=== PATIENT | male | born 1945 | race Caucasian/White ===

== ENCOUNTER 2023-02-04 23:52 | Inpatient (IN) ==
[2023-02-05 00:21] LABS: Basophils # (auto) 0.04 K/uL (0-0.2); Basophils % (auto) 0.7 %; Eosinophils # (auto) 0.22 K/uL (0-0.50); Eosinophils % (auto) 3.7 %; Hematocrit (blood only) 41.6 % (42.0-52.0); Hemoglobin 14.1 g/dl (14.0-18.0); Immature Granulocytes # (auto) 0.04 K/uL (0.01-0.20); Immature Granulocytes % (auto) 0.7 %; Lymphocytes # (auto) 1.31 K/uL (1.2-3.4); Lymphocytes % (auto) 21.8 %; Mean Corpuscular Hemoglobin 30.8 pg (25.0-34.0); Mean Corpuscular Hgb Conc 33.9 g/dL (32.0-36.0); Mean Corpuscular Volume 90.8 fL (80.0-100.0); Mean Platelet Volume 10.5 fL (9.4-12.4); Monocytes # (auto) 0.55 K/uL (0.11-0.59); Monocytes % (auto) 9.2 %; Neutrophils # (auto) 3.85 K/uL (1.40-6.50); Neutrophils % (auto) 63.9 %; Platelet Count 187 K/uL (130-400); RDW Coefficient of Variation 12.5 % (11.5-14.5); RDW Standard Deviation 41.6 fL (36.4-46.3); Red Blood Count 4.58 M/uL (4.70-6.10); White Blood Count 6.01 K/ul (4.8-10.8)
--- NOTE | 2023-02-05 00:33 | Emergency Department Note ---
Impression & Plan Syncope, HTN (hypertension) ED Provider Note NAME: SHERRILL LÓPEZ AGE: 77 SEX: M : 1945 ARRIVES VIA: Ambulance INFORMANT: Patient ED PROVIDER(S): Onesimo Horner DO CHIEF COMPLAINT: Syncope HPI: Patient is a 77-year-old male who presents to the ER with no significant past medical history. He notes he only takes an aspirin daily but does not take anything else. He was out sitting at the table with friends. He became unresponsive Pall[place] blue. When EMS arrived they sternal rub him and he would not wake up. He was placed on a nonrebreather as he was hypoxic with a pulse ox of 80%. He eventually woke up following administration of IV fluids. He notes he was feeling perfectly fine prior to this. He had no chest pain or shortness of breath preceding or following this. No belly pain nausea vomiting or diarrhea. No dysuria urgency or frequency. No other exacerbating or remitting factors. No weakness or numbness in the arms or legs. PAST MEDICAL HISTORY:See Below PAST SURGICAL HISTORY:See Below FAMILY HISTORY:See Below SOCIAL HISTORY:See Below HOME MEDICATIONS:See Below ALLERGIES:See Below VITALS:See Below PHYSICAL EXAMINATION: GENERAL: Sitting up in bed, alert, well appearing, well nourished, no distress, non-toxic EYE EXAM: normal conjunctiva. PERRL and EOM's grossly intact. OROPHARYNX: no exudate, no erythema, lips, buccal mucosa, and tongue normal and mucous membranes are moist NECK: supple, no nuchal rigidity, no adenopathy, non-tender LUNGS: Clear to auscultation. Normal chest wall mechanics HEART: no murmurs, S1 normal and S2 normal ABDOMEN: abdomen soft, non-tender, normo-active bowel sounds, no masses, no rebound or guarding. UPPER EXTREMITIES: upper extremities are grossly normal. LOWER EXTREMITIES: No pitting edema. Calves are equal bilateral NEURO EXAM: Normal sensorium, cranial nerves II-XII intact, normal speech, no weakness of arms, no weakness of legs. No drift. Finger to nose intact. Gross sensation intact. MEDICAL DECISION MAKING: Patient is a 77-year-old male who presents ER for above-stated complaint. IV w as established blood work was obtained. Patient was completely neurologically intact. He was found unresponsive with a pulse ox of 80% and was brought in and did not wake up following a sternal rub. Labs show no significant leukocytosis or anemia. EKG was nondiagnostic. BMP LFTs bilirubin was unremarkable. Troponin was negative. Lipase normal. COVID flu and RSV was negative. Patient was persistently hypertensive with systolics of 210. Was given 10 mg of IV hydralazine. Blood pressures did trend down to the 180s. Patient was updated at bedside. Discussed with the hospitalist Dr. Montez Flaherty for further evaluation management and treatment. Triage Nursing notes reviewed. Limited review of prior medical records performed Vital Signs: reviewed and remarkable for HTN Differential diagnosis: Differential diagnosis includes etiologies such as vasovagal event, infection, hypoglycemia, electrolyte abnormalities, cardiac sources, intracerebral event, toxicologic, neurologic, as well as others were entertained. ER treatment provided: See below Diagnostics interpreted by me include EKG and cardiac monitoring as listed below: -Cardiac Monitoring: An order was placed for continuous cardiac monitoring. The monitor shows a rate of 80 with sinus rhythm. -ECG: Sinus rhythm rate 79 Normal axis No PVCs Poor baseline QTc 447 -Laboratory studies:Interpreted by me as stated above in MDM and shown below. Imaging studies: Xrays: As interpreted by me: Portable AP upright 1 view of the chest shows no focal infiltrate CTs show: none Consultation(s): As described in MDM Procedures:none Critical Care: None Past Med/Surg History Social History Smoking Status: Never smoker Preferred Language: Chinese Feels Safe at Home: Yes Allergies Allergies Allergy/AdvReac Type Severity Reaction Status Date / Time No Known Allergies Allergy Verified 02/05/23 00:34 Home Meds Home Medications Medication Instructions Recorded Confirmed acetylcysteine 600 mg capsule (NAC) 0 mg PO DAILY 02/05/23 02/05/23 ascorbic acid (vitamin C) 500 mg 0 mg PO DAILY 02/05/23 02/05/23 tablet (Vitamin C) cholecalciferol (vitamin D3) 25 0 mcg PO DAILY 02/05/23 02/05/23 mcg (1,000 unit) capsule (Vitamin D3) cyanocobalamin (vitamin B-12) 0 mcg PO DAILY 02/05/23 02/05/23 1,000 mcg tablet (Vitamin B-12) multivitamin 1 tab PO DAILY 02/05/23 02/05/23 zinc gluconate 100 mg tablet 0 mg PO DAILY 02/05/23 02/05/23 Results & Data (ED) Vital Signs Vital Signs - 24 hr 02/04/23 23:58 02/04/23 23:58 02/05/23 00:10 Temperature 36.7 C Temperature Source Oral Pulse Rate 82 Pulse Rate from SpO2 Sensor Respiratory Rate 22 Respiratory Effort / Characteristics Non-Labored Spontaneous Non-Labored Spontaneous Respiratory Depth Normal Blood Pressure 201/93 H Blood Pressure Mean 129 Pulse Oximetry 97 97 Oxygen Delivery Method Room Air Room Air Sepsis New/Unexplained Change in Mental Status N/A Sepsis Action Taken by Nursing No Action Required 02/05/23 00:01 02/05/23 00:02 02/05/23 00:02 Temperature Temperature Source Pulse Rate 79 76 Pulse Rate from SpO2 Sensor Respiratory Rate 20 19 Respiratory Effort / Characteristics Respiratory Depth Blood Pressure 201/93 H Blood Pressure Mean 137 Pulse Oximetry Oxygen Delivery Method Sepsis New/Unexplained Change in Mental Status Sepsis Action Taken by Nursing 02/05/23 00:10 02/05/23 00:20 02/05/23 00:30 Temperature Temperature Source Pulse Rate 76 73 Pulse Rate from SpO2 Sensor 75 73 Respiratory Rate 23 12 Respiratory Effort / Characteristics Respiratory Depth Blood Pressure 197/107 H Blood Pressure Mean 150 Pulse Oximetry 97 96 Oxygen Delivery Method Sepsis New/Unexplained Change in Mental Status Sepsis Action Taken by Nursing 02/05/23 00:30 02/05/23 00:40 02/05/23 00:50 Temperature Temperature Source Pulse Rate 75 74 80 Pulse Rate from SpO2 Sensor 75 75 80 Respiratory Rate 22 17 32 H Respiratory Effort / Characteristics Respiratory Depth Blood Pressure Blood Pressure Mean Pulse Oximetry 96 96 95 Oxygen Delivery Method Sepsis New/Unexplained Change in Mental Status Sepsis Action Taken by Nursing 02/05/23 01:00 02/05/23 01:01 02/05/23 01:01 Temperature Temperature Source Pulse Rate 78 92 H Pulse Rate from SpO2 Sensor 80 92 H Respiratory Rate 23 20 Respiratory Effort / Characteristics Respiratory Depth Blood Pressure 209/102 H Blood Pressure Mean 140 Pulse Oximetry 94 96 Oxygen Delivery Method Sepsis New/Unexplained Change in Mental Status Sepsis Action Taken by Nursing 02/05/23 01:10 02/05/23 01:20 02/05/23 01:30 Temperature Temperature Source Pulse Rate 71 76 77 Pulse Rate from SpO2 Sensor 71 73 75 Respiratory Rate 19 18 25 H Respiratory Effort / Characteristics Respiratory Depth Blood Pressure Blood Pressure Mean Pulse Oximetry 98 98 97 Oxygen Delivery Method Sepsis New/Unexplained Change in Mental Status Sepsis Action Taken by Nursing 02/05/23 01:31 02/05/23 01:31 02/05/23 01:40 Temperature Temperature Source Pulse Rate 75 84 Pulse Rate from SpO2 Sensor 74 80 Respiratory Rate 17 19 Respiratory Effort / Characteristics Respiratory Depth Blood Pressure 199/106 H Blood Pressure Mean 130 Pulse Oximetry 96 97 Oxygen Delivery Method Sepsis New/Unexplained Change in Mental Status Sepsis Action Taken by Nursing 02/05/23 01:50 02/05/23 02:00 02/05/23 02:00 Temperature Temperature Source Pulse Rate 77 70 Pulse Rate from SpO2 Sensor 76 73 Respiratory Rate 26 H 12 Respiratory Effort / Characteristics Respiratory Depth Blood Pressure 195/104 H Blood Pressure Mean 152 Pulse Oximetry 98 97 Oxygen Delivery Method Sepsis New/Unexplained Change in Mental Status Sepsis Action Taken by Nursing 02/05/23 02:10 02/05/23 02:20 02/05/23 02:30 Temperature Temperature Source Pulse Rate 74 Pulse Rate from SpO2 Sensor 74 70 Respiratory Rate 15 Respiratory Effort / Characteristics Respiratory Depth Blood Pressure 185/98 H Blood Pressure Mean 148 Pulse Oximetry 98 96 Oxygen Delivery Method Sepsis New/Unexplained Change in Mental Status Sepsis Action Taken by Nursing 02/05/23 02:30 Temperature Temperature Source Pulse Rate 73 Pulse Rate from SpO2 Sensor 73 Respiratory Rate 29 H Respiratory Effort / Characteristics Respiratory Depth Blood Pressure Blood Pressure Mean Pulse Oximetry 97 Oxygen Delivery Method Sepsis New/Unexplained Change in Mental Status Sepsis Action Taken by Nursing Laboratory Data 02/05/23 00:05 02/05/23 00:05 Lab Results 02/05/23 02/05/23 02/05/23 Range/Units 00:05 00:05 00:05 WBC 6.01 (4.8-10.8) K/ul RBC 4.58 L (4.70-6.10) M/uL Hgb 14.1 (14.0-18.0) g/dl Hct 41.6 L (42.0-52.0) % MCV 90.8 (80.0-100.0) fL MCH 30.8 (25.0-34.0) pg MCHC 33.9 (32.0-36.0) g/dL RDW Std Deviation 41.6 (36.4-46.3) fL RDW Coeff of Stephanie 12.5 (11.5-14.5) % Plt Count 187 (130-400) K/uL MPV 10.5 (9.4-12.4) fL Immature Gran % (Auto) 0.7 % Neut % (Auto) 63.9 % Lymph % (Auto) 21.8 % [place] % (Auto) 9.2 % Eos % (Auto) 3.7 % Baso % (Auto) 0.7 % Neut # (Auto) 3.85 (1.40-6.50) K/uL Lymph # (Auto) 1.31 (1.2-3.4) K/uL [place] # (Auto) 0.55 (0.11-0.59) K/uL Eos # (Auto) 0.22 (0-0.50) K/uL Baso # (Auto) 0.04 (0-0.2) K/uL Immature Gran # (Auto) 0.04 (0.01-0.20) K/uL APTT 22.5 (21.0-31.0) Seconds PTT Ratio 0.8 Sodium 135 L (136-145) mmol/L Potassium 3.7 (3.5-5.1) mmol/L Chloride 101 (98-107) mmol/L Carbon Dioxide 29 (21-32) mmol/L Anion Gap 5 (3-11) BUN 20 (6-23) mg/dl Creatinine 1.33 (0.6-1.4) mg/dl Est Cr Clr Drug Dosing 45.7 ml/min Est GFR ( Amer) 59.8 ml/min Est GFR (Non-Af Amer) 51.6 ml/min BUN/Creatinine Ratio 15.0 (10-20) Glucose 194 H (70-99(Fasting)) mg/dl Calcium 8.9 (8.6-10.3) mg/dl Magnesium 2.0 (1.7-2.4) mg/dl Total Bilirubin 0.4 (0.2-1.0) mg/dl AST 25 (13-39) U/L ALT 20 (7-52) U/L Alkaline Phosphatase 42 (34-104) U/L Troponin I High Sens 9.8 (0-20) pg/ml Total Protein 6.8 (6.0-8.3) gm/dl Albumin 4.0 (3.4-5.0) gm/dl Globulin 2.8 (2.5-4.0) gm/dl Albumin/Globulin Ratio 1.4 (0.9-2) Lipase 67 (11-82) U/L TSH (0.300-4.500) uIu/ml Urine Color Urine Appearance (Clear) Urine pH (4.5-7.5) Ur Specific [place] (1.000-1.030) Urine Protein (Negative) Urine Glucose (UA) (Negative) Urine Ketones (Negative) Urine Blood (Negative) Urine Nitrite (Negative) Urine Bilirubin (Negative) Urine Urobilinogen (Negative) Ur Leukocyte Esterase (Negative) SARS-CoV-2 (PCR) (Negative) Influenza Type A (PCR) (Neg) Influenza Type B (PCR) (Neg) RSV (RT-PCR) (Neg) 02/05/23 02/05/23 02/05/23 Range/Units 00:05 00:12 01:43 WBC (4.8-10.8) K/ul RBC (4.70-6.10) M/uL Hgb (14.0-18.0) g/dl Hct (42.0-52.0) % MCV (80.0-100.0) fL MCH (25.0-34.0) pg MCHC (32.0-36.0) g/dL RDW Std Deviation (36.4-46.3) fL RDW Coeff of Stephanie (11.5-14.5) % Plt Count (130-400) K/uL MPV (9.4-12.4) fL Immature Gran % (Auto) % Neut % (Auto) % Lymph % (Auto) % [place] % (Auto) % Eos % (Auto) % Baso % (Auto) % Neut # (Auto) (1.40-6.50) K/uL Lymph # (Auto) (1.2-3.4) K/uL [place] # (Auto) (0.11-0.59) K/uL Eos # (Auto) (0-0.50) K/uL Baso # (Auto) (0-0.2) K/uL Immature Gran # (Auto) (0.01-0.20) K/uL APTT (21.0-31.0) Seconds PTT Ratio Sodium (136-145) mmol/L Potassium (3.5-5.1) mmol/L Chloride (98-107) mmol/L Carbon Dioxide (21-32) mmol/L Anion Gap (3-11) BUN (6-23) mg/dl Creatinine (0.6-1.4) mg/dl Est Cr Clr Drug Dosing ml/min Est GFR ( Amer) ml/min Est GFR (Non-Af Amer) ml/min BUN/Creatinine Ratio (10-20) Glucose (70-99(Fasting)) mg/dl Calcium (8.6-10.3) mg/dl Magnesium (1.7-2.4) mg/dl Total Bilirubin (0.2-1.0) mg/dl AST (13-39) U/L ALT (7-52) U/L Alkaline Phosphatase (34-104) U/L Troponin I High Sens (0-20) pg/ml Total Protein (6.0-8.3) gm/dl Albumin (3.4-5.0) gm/dl Globulin (2.5-4.0) gm/dl Albumin/Globulin Ratio (0.9-2) Lipase (11-82) U/L TSH 8.623 H (0.300-4.500) uIu/ml Urine Color Yellow Urine Appearance Clear (Clear) Urine pH 7.5 (4.5-7.5) Ur Specific [place] 1.011 (1.000-1.030) Urine Protein Negative (Negative) Urine Glucose (UA) Trace H (Negative) Urine Ketones Negative (Negative) Urine Blood Negative (Negative) Urine Nitrite Negative (Negative) Urine Bilirubin Negative (Negative) Urine Urobilinogen Negative (Negative) Ur Leukocyte Esterase Negative (Negative) SARS-CoV-2 (PCR) NEGATIVE (Negative) Influenza Type A (PCR) Negative (Neg) Influenza Type B (PCR) Negative (Neg) RSV (RT-PCR) Negative (Neg) Administered Medications Lactated Ringer's (Lr) 1,000 mls @ 60 mls/hr IV .[id number] ONE Stop: 02/05/23 18:42 Last Admin: 02/05/23 02:20 Dose: 60 mls/hr Documented By: E MARKETING SPECIALIST Discontinued Medications Hydralazine HCl (Hydralazine Hcl 20 Mg/Ml Vial) 10 mg IV NOW STA Stop: 02/05/23 01:19 Last Admin: 02/05/23 02:20 Dose: 10 mg Documented By: E MARKETING SPECIALIST Ioversol (Optiray 320 125ml) 125 ml IV ONCE ONE Stop: 02/05/23 03:16 Last Admin: 02/05/23 03:17 Dose: 118 ml Documented By: DIANNE Discharge Plan Visit Data Chief Complaint: Respiratory Problems Stated Complaint: Respiratory Problems, Found Unresponsive ED Provider: Onesimo Horner Discharge Problem: Syncope, HTN (hypertension) Forms Stand Alone Forms: [facility] Prescriptions Prescriptions: No Action multivitamin Tablet 1 tab PO DAILY zinc gluconate [Zinc Natural] 100 mg Tablet 0 mg PO DAILY Rx Instructions: PT UNSURE OF STRENGTH cyanocobalamin (vitamin B-12) [Vitamin B-12] 1,000 mcg Tablet 0 mcg PO DAILY Rx Instructions: PT UNSURE OF STRENGTH ascorbic acid (vitamin C) [Vitamin C] 500 mg Tablet 0 mg PO DAILY Rx Instructions: PT UNSURE OF STRENGTH cholecalciferol (vitamin D3) [Vitamin D3] 25 mcg (1,000 unit) Capsule 0 mcg PO DAILY Rx Instructions: PT UNSURE OF STRENGTH acetylcysteine [NAC] 600 mg Capsule 0 mg PO DAILY Rx Instructions: PT UNSURE OF STRENGTH Referrals Referrals: PCP,NO [Primary Care Provider] -
[2023-02-05 00:45] LABS: Albumin Globulin Ratio 1.4 (0.9-2); Bilirubin,Total 0.4 mg/dl (0.2-1.0); Calcium 8.9 mg/dl (8.6-10.3); Creatinine Clr Calc Pharmacy 45.7 ml/min; Est GFR (African American) 59.8 ml/min; Est GFR (Non-African American) 51.6 ml/min; Globulin 2.8 gm/dl (2.5-4.0); Potassium 3.7 mmol/L (3.5-5.1); Total Protein 6.8 gm/dl (6.0-8.3)
[2023-02-05 00:51] LABS: Troponin I High Sensitivity 9.8 pg/ml (0-20)
[2023-02-05 00:55] LABS: Influenza A virus by PCR Negative (Neg); Influenza B virus by PCR Negative (Neg); RSV by PCR Negative (Neg); SARS CoV2 RNA(COVID-19) Ceph NEGATIVE (Negative)
[2023-02-05] MEDS ORDERED: hydrALAZINE HCL 20 MG/ML VIAL IV STA (01:18)
[2023-02-05 01:45] LABS: Partial Thromboplastin Ratio 0.8; Partial Thromboplastin Time 22.5 Seconds (21.0-31.0)
[2023-02-05 01:55] LABS: Appearance Urine Clear (Clear); Bilirubin Urine Negative (Negative); Blood Urine Negative (Negative); Color Urine Yellow; Glucose Urine UA Trace (Negative); Ketones Urine Negative (Negative); Leukocyte Esterase Urine Negative (Negative); Nitrite Urine Negative (Negative); Protein Urine Negative (Negative); Specific Gravity Urine 1.011 (1.000-1.030); Urobilinogen Urine Negative (Negative); pH Urine 7.5 (4.5-7.5)
--- NOTE | 2023-02-05 01:59 | History & Physical Report ---
Date of Service February 05, 2023 Assessment & Plan (1) Hypertensive urgency: Plan: Possible BP elevation given cardiomegaly on CT imaging Transient unresponsiveness (which patient denies)/weakness Possibly from transient hypotension Rule out arrhythmia, valvular pathology Subclinical hypothyroidism Hyperglycemia rule out DM OBS Medical telemetry Initiate lisinopril TTE Re: Hypotension check hemoglobin A1c Recheck TSH next month outpatient DVT prophylaxis with Lovenox subcu Full code Text document was generated using [employer] voice recognition software. It may contain grammatical or spelling errors. Kindly contact undersigned for clarification of any documentation item in question. History of Present Illness Chief Complaint: Tired as per patient Unresponsive as per records Primary Care Provider: NO PCP History obtained from patient and records. No significant medical history. Patient is a resident of [place] who has not had a primary care doctor for years. Patient only takes [id number] supplements. He is currently in town to look at properties because he wants to reestablish residence in [place]. Patient resided with in [place] for more than 30 years before she from cancer about 2 years ago. Patient currently lives with his daughter in [place]. Patient was staying in [place], [place] at his sister's home the past week before driving to [facility] yesterday. He had a very busy day yesterday running errands and looking at properties. He remembers being tired. Patient was sitting at a table at a friend's home last night. He had his head down because he was tired. Patient denies loss of consciousness or syncope. His friends thought he was unresponsive. No witnessed seizures, incontinence. EMS called to friend's home. Initial SBP 60s, heart rate 50s to 60s, O2 sats 82 on room air. BSG 160s. Patient initially not responsive to sternal rub as per EMS report. Patient later woke up after IV fluids. Patient denies headache, chest pain, SOB. Admits to burping symptoms from a bad turkey sandwich. No actual abdominal pain. SBP 200s upon arrival at the ER. IV hydralazine administered at the ER. Medical History as above Surgical History : Tonsillectomy Family History : Alcoholism Personal/Social history : Non-smoker, occasional EtOH intake, retired businessman Allergies Allergy/AdvReac Type Severity Reaction Status Date / Time No Known Allergies Allergy Verified 07/05/23 00:34 Home Medications Medication Instructions Recorded Confirmed Type acetylcysteine 600 mg capsule (NAC) 0 mg PO DAILY 02/05/23 02/05/23 History ascorbic acid (vitamin C) 500 mg 0 mg PO DAILY 02/05/23 02/05/23 History tablet (Vitamin C) cholecalciferol (vitamin D3) 25 0 mcg PO DAILY 02/05/23 02/05/23 History mcg (1,000 unit) capsule (Vitamin D3) cyanocobalamin (vitamin B-12) 0 mcg PO DAILY 02/05/23 02/05/23 History 1,000 mcg tablet (Vitamin B-12) multivitamin 1 tab PO DAILY 02/05/23 02/05/23 History zinc gluconate 100 mg tablet 0 mg PO DAILY 02/05/23 02/05/23 History Past Med/Surg History Social History Smoking Status: Never smoker Hx Alcohol Use: No Hx Substance Use: No Preferred Language: Palauan Communication Ability: Effective [employer]imney Supervisor Required: No Beliefs That Will Affect Care: None Current Living Situation: Alone Feels Safe at Home: Yes Safety Concerns: Feels Safe At This Time Assistive Devices: None Review of Systems Review of Systems: As per HPI, all other systems reviewed and negative Physical Exam Physical Exam: GENERAL: Comfortable, pleasant, no respiratory distress SKIN: Normal color, warm HEENT: [place] palpebral conjunctivae, no ptosis, dry buccal mucosa NECK : Supple, no tenderness CHEST : CTA, no tenderness HEART : RRR, no obvious murmurs ABDOMEN: no distention, nontender EXTREMITIES : No LE swelling/tenderness, no other conspicuous deformities noted NEUROLOGIC : Coherent, no facial asymmetry, no other gross focality Results & Data Results & Data Vital Signs (Past 12 Hours) Vital Signs Temp Pulse Resp BP Pulse Ox O2 Del Method 02/05/23 01:01 92 H 20 96 02/05/23 01:01 209/102 H 02/05/23 01:00 78 23 94 02/05/23 00:50 80 32 H 95 02/05/23 00:40 74 17 96 02/05/23 00:30 75 22 96 02/05/23 00:30 197/107 H 02/05/23 00:20 73 12 96 02/05/23 00:10 76 23 97 02/05/23 00:02 201/93 H 02/05/23 00:02 76 19 02/05/23 00:01 79 20 02/05/23 00:10 97 Room Air 02/04/23 23:58 36.7 C 82 22 201/93 H 97 Room Air Laboratory Results Laboratory Results WBC 6.01 K/ul (4.8-10.8) 02/05/23 00:05 RBC 4.58 M/uL (4.70-6.10) L 02/05/23 00:05 Hgb 14.1 g/dl (14.0-18.0) 02/05/23 00:05 Hct 41.6 % (42.0-52.0) L 02/05/23 00:05 MCV 90.8 fL (80.0-100.0) 02/05/23 00:05 MCH 30.8 pg (25.0-34.0) 02/05/23 00:05 MCHC 33.9 g/dL (32.0-36.0) 02/05/23 00:05 RDW Std Deviation 41.6 fL (36.4-46.3) 02/05/23 00:05 RDW Coeff of Stephanie 12.5 % (11.5-14.5) 02/05/23 00:05 Plt Count 187 K/uL (130-400) 02/05/23 00:05 MPV 10.5 fL (9.4-12.4) 02/05/23 00:05 Immature Gran % (Auto) 0.7 % 02/05/23 00:05 Neut % (Auto) 63.9 % 02/05/23 00:05 Lymph % (Auto) 21.8 % 02/05/23 00:05 [place] % (Auto) 9.2 % 02/05/23 00:05 Eos % (Auto) 3.7 % 02/05/23 00:05 Baso % (Auto) 0.7 % 02/05/23 00:05 Neut # (Auto) 3.85 K/uL (1.40-6.50) 02/05/23 00:05 Lymph # (Auto) 1.31 K/uL (1.2-3.4) 02/05/23 00:05 [place] # (Auto) 0.55 K/uL (0.11-0.59) 02/05/23 00:05 Eos # (Auto) 0.22 K/uL (0-0.50) 02/05/23 00:05 Baso # (Auto) 0.04 K/uL (0-0.2) 02/05/23 00:05 Immature Gran # (Auto) 0.04 K/uL (0.01-0.20) 02/05/23 00:05 APTT 22.5 Seconds (21.0-31.0) 02/05/23 00:05 PTT Ratio 0.8 02/05/23 00:05 Sodium 135 mmol/L (136-145) L 02/05/23 00:05 Potassium 3.7 mmol/L (3.5-5.1) 02/05/23 00:05 Chloride 101 mmol/L (98-107) 02/05/23 00:05 Carbon Dioxide 29 mmol/L (21-32) 02/05/23 00:05 Anion Gap 5 (3-11) 02/05/23 00:05 BUN 20 mg/dl (6-23) 02/05/23 00:05 Creatinine 1.33 mg/dl (0.6-1.4) 02/05/23 00:05 Est Cr Clr Drug Dosing 45.7 ml/min 02/05/23 00:05 Est GFR ( Amer) 59.8 ml/min 02/05/23 00:05 Est GFR (Non-Af Amer) 51.6 ml/min 02/05/23 00:05 BUN/Creatinine Ratio 15.0 (10-20) 02/05/23 00:05 Glucose 194 mg/dl (70-99(Fasting)) H 02/05/23 00:05 Calcium 8.9 mg/dl (8.6-10.3) 02/05/23 00:05 Total Bilirubin 0.4 mg/dl (0.2-1.0) 02/05/23 00:05 AST 25 U/L (13-39) 02/05/23 00:05 ALT 20 U/L (7-52) 02/05/23 00:05 Alkaline Phosphatase 42 U/L (34-104) 02/05/23 00:05 Troponin I High Sens 9.8 pg/ml (0-20) 02/05/23 00:05 Total Protein 6.8 gm/dl (6.0-8.3) 02/05/23 00:05 Albumin 4.0 gm/dl (3.4-5.0) 02/05/23 00:05 Globulin 2.8 gm/dl (2.5-4.0) 02/05/23 00:05 Albumin/Globulin Ratio 1.4 (0.9-2) 02/05/23 00:05 Lipase 67 U/L (11-82) 02/05/23 00:05 Urine Color Yellow 02/05/23 01:43 Urine Appearance Clear (Clear) 02/05/23 01:43 Urine pH 7.5 (4.5-7.5) 02/05/23 01:43 Ur Specific [place] 1.011 (1.000-1.030) 02/05/23 01:43 Urine Protein Negative (Negative) 02/05/23 01:43 Urine Glucose (UA) Trace (Negative) H 02/05/23 01:43 Urine Ketones Negative (Negative) 02/05/23 01:43 Urine Blood Negative (Negative) 02/05/23 01:43 Urine Nitrite Negative (Negative) 02/05/23 01:43 Urine Bilirubin Negative (Negative) 02/05/23 01:43 Urine Urobilinogen Negative (Negative) 02/05/23 01:43 Ur Leukocyte Esterase Negative (Negative) 02/05/23 01:43 SARS-CoV-2 (PCR) NEGATIVE (Negative) 02/05/23 00:12 Influenza Type A (PCR) Negative (Neg) 02/05/23 00:12 Influenza Type B (PCR) Negative (Neg) 02/05/23 00:12 RSV (RT-PCR) Negative (Neg) 02/05/23 00:[address] chest : COMPARISON: No relevant prior studies available. FINDINGS: Limitations: There is respiratory artifact, which degrades image quality on multiple image slices. Pulmonary arteries: Accounting for limitations with respiratory artifact, there is no definite evidence for pulmonary embolism. Aorta: No acute findings. No thoracic aortic aneurysm. Lungs: Minimal dependent subsegmental changes noted posteriorly in both lungs. No focal airspace consolidation. Pleural space: Unremarkable. No significant effusion. No pneumothorax. Heart: The cardiac chambers are mildly enlarged. Coronary artery calcification is of uncertain clinical significance in patients of this age group. No pericardial effusion. Bones/joints: No acute fracture. No dislocation. Soft tissues: Unremarkable. Lymph nodes: Unremarkable. No enlarged lymph nodes. IMPRESSION: 1. Accounting for limitations with respiratory artifact, there is no definite evidence for pulmonary embolism. 2. Minimal dependent subsegmental atelectatic changes noted posteriorly in both lungs. No focal airspace consolidation. No pleural effusion or pneumothorax. EKG as per my interpretation : Rate 80, NSR, normal axis, no ischemia
[2023-02-05] MEDS ORDERED: LACTATED RINGER'S 1,000 ML IV ONE (02:03)
[2023-02-05 02:58] LABS: Thyroid Stimulating Hormone 8.623 uIu/ml (0.300-4.500)
[2023-02-05] MEDS ORDERED: OPTIRAY 320 125ml IV ONE (03:15)
[2023-02-05 03:37] LABS: T4 Free Thyroxine 0.82 ng/dl (0.61-1.60)
--- NOTE | 2023-02-05 04:16 | CT Scan Report ---
Exam(s): CTA CHEST IV Amt: 118 ML OPTIRAY 320 EXAM: CT Angiography Chest With Intravenous Contrast CLINICAL HISTORY: low o2. TECHNIQUE: Axial computed tomographic angiography images of the chest with intravenous contrast. CTDI is 17.3 mGy and DLP is 614.74 mGy-cm. Automated exposure control was utilized for the study. A dose lowering technique was utilized adhering to the principles of ALARA. MIP reconstructed images were created and reviewed. COMPARISON: No relevant prior studies available. FINDINGS: Limitations: There is respiratory artifact, which degrades image quality on multiple image slices. Pulmonary arteries: Accounting for limitations with respiratory artifact, there is no definite evidence for pulmonary embolism. Aorta: No acute findings. No thoracic aortic aneurysm. Lungs: Minimal dependent subsegmental changes noted posteriorly in both lungs. No focal airspace consolidation. Pleural space: Unremarkable. No significant effusion. No pneumothorax. Heart: The cardiac chambers are mildly enlarged. Coronary artery calcification is of uncertain clinical significance in patients of this age group. No pericardial effusion. Bones/joints: No acute fracture. No dislocation. Soft tissues: Unremarkable. Lymph nodes: Unremarkable. No enlarged lymph nodes. IMPRESSION: 1. Accounting for limitations with respiratory artifact, there is no definite evidence for pulmonary embolism. 2. Minimal dependent subsegmental atelectatic changes noted posteriorly in both lungs. No focal airspace consolidation. No pleural effusion or pneumothorax. Electronically signed by: Adolfo Cortez MD 02/05/23 04:16 AM
[2023-02-05] MEDS ORDERED: ACETAMINOPHEN 325 MG TAB PO PRN (04:23)
[2023-02-05] MEDS ORDERED: PROMETHAZINE HCL 6.25 MG in SODIUM CHLORIDE 0.9% 50 ML IV PRN (04:23)
[2023-02-05] MEDS ORDERED: lisinopril 2.5 MG TAB PO SCH (04:40)
--- NOTE | 2023-02-05 07:50 | XRay Report ---
XR chest 1V portable CLINICAL HISTORY: Chest pain, nonspecific TECHNIQUE: Single frontal radiograph of the chest was obtained. Comparison: None available at the time of this dictation. FINDINGS: No lines and tubes are seen. The cardiomediastinal silhouette is normal. The lungs are clear. No evid ence of pleural effusion or pneumothorax. IMPRESSION: No acute chest disease. ACT 112: Negative or not required by law. Electronically signed by: Refugio Lopez M.D. 02/05/2023 7:48 AM
[2023-02-05] MEDS ORDERED: hydrALAZINE HCL 20 MG/ML VIAL IV ONE (08:21)
[2023-02-05] MEDS: ENOXAPARIN INJ 40 MG/0.4 ML SYR SQ SCH (08:49)
[2023-02-05 09:44] LABS: Estimated Average Glucose 120 mg/dl; Hemoglobin A1C 5.8 % (4.5-5.6)
[2023-02-05] MEDS ORDERED: amLODIPine BESYLATE 5 MG TAB PO ONE (11:24)
--- NOTE | 2023-02-05 11:50 | Cardiology Consultation ---
Date of Consultation February 05, 2023 Assessment & Plan (1) Hypertensive urgency: - Difficult to determine if this is a hypertensive urgency, or if the patient has had previously undiagnosed hypertension. His initial systolic blood pressures were around 200 mmHg, with most recent systolic blood pressure at 11: 31 AM 166 mmHg. Patient received doses of IV hydralazine 10 mg, 5 mg overnight and again this morning. He subsequently received 2.5 mg of oral losartan and 2.5 mg of amlodipine. -I favor transitioning him from lisinopril to losartan, starting a dose of 25 mg daily. -Medications to be titrated as indicated. (2) Syncope: - Patient was apparently unarousable by bystanders. He believes that he was sleeping. -At present no evidence of bradycardia, normal left ventricular systolic function, and the history does not necessarily support the diagnosis of a syncopal event. (3) Coronary artery calcification seen on CAT scan: - Because of concerns of baseline hypoxia upon arrival he underwent a CT angiogram is negative for pulmonary embolism. There was however the incidental finding of coronary artery calcifications. We will proceed with a fasting lipid panel for screening purposes tomorrow. Further treatment will be forthcoming depending upon results. Patient without any signs or symptoms suggestive angina. High-sensitivity troponin negative x1. EKG without changes to suggest acute ischemia. History of Present Illness Attending Physician: Rony Rivas MD History of Present Illness Steve Gilman is a 77 year old male seen in cardiology consultation per the request of Dr Rivas for the evaluation of hypertensive urgency and concerns of a syncopal episode. The patient describes himself as being physically active at baseline. He states that he usually exercises regularly however he has not been exercising as much as of recently due to an Achilles tendon injury. He lives in [place] having previously lived in [facility] and is in the process of moving back to [place]. He does not attend medical appointments on a regular basis and does not have any insight into his baseline blood pressure. He does not take any routine medication. He describes that yesterday he had a long day. He had been visiting his sister who lives in [facility] and drove from her home to [place] and then to [place]. He states that he had a chicken sandwich at a friend's house last evening they gave him indigestion. Apparently between 1030 and 11 PM he fell asleep at a table and his friends could not awaken him. EMS was summoned. There is concern that the patient was hypoxic on arrival of EMS, but his pulse oximetry was normal on arrival to the emergency room and remains normal. He is on no supplementary oxygen. His initial blood pressure is measured in the emergency department at 2358 last evening was 201/93. Thus far treatment has included administration of lactated Ringer's IV fluids, a dose of hydralazine 10 mg IV was administered at 2:20 AM followed by a dose of 5 mg of IV hydralazine at 8:48 AM. Family History: He describes that his father suffered from alcohol dependence. He had peripheral vascular disease and what sounds like a lower extremity femoral artery bypass. He ultimately in his 80s. No known history of coronary heart disease. Mother at the age of 75 with history of diabetes and an apparent infection after a new surgery. The patient states that his siblings have no known history of heart disease. Social History: Patient lives independently. He currently resides in [place] and is in the process of moving to [place]. He is a non-smoker. 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 [employer] Allergies Allergy/AdvReac Type Severity Reaction Status Date / Time No Known Allergies Allergy Verified 02/05/23 00:34 Home Medications Medication Instructions Recorded Confirmed Type acetylcysteine 600 mg capsule (NAC) 0 mg PO DAILY 02/05/23 02/05/23 History ascorbic acid (vitamin C) 500 mg 0 mg PO DAILY 02/05/23 02/05/23 History tablet (Vitamin C) cholecalciferol (vitamin D3) 25 0 mcg PO DAILY 02/05/23 02/05/23 History mcg (1,000 unit) capsule (Vitamin D3) cyanocobalamin (vitamin B-12) 0 mcg PO DAILY 02/05/23 02/05/23 History 1,000 mcg tablet (Vitamin B-12) multivitamin 1 tab PO DAILY 02/05/23 02/05/23 History zinc gluconate 100 mg tablet 0 mg PO DAILY 02/05/23 02/05/23 History Patient History Social History Smoking Status: Never smoker Hx Alcohol Use: No Hx Substance Use: No Preferred Language: Citizen Of [place] Communication Ability: Effective Counter Clerk Required: No Beliefs That Will Affect Care: None Current Living Situation: Alone Feels Safe at Home: Yes Safety Concerns: Feels Safe At This Time Assistive Devices: None Review of Systems Review of Systems: All systems reviewed & are unremarkable except as noted in HPI & below Physical Exam Constitutional: WD/WN, vitals as above Eyes: PERRL, conjunctivae normal, anicteric sclerae Respiratory: normal respiratory effort, lungs clear to auscultation Cardiovascular: RRR, no murmur, no edema Gastrointestinal (Abdomen): normal bowel sounds, soft, nontender, no hepatosplenomegaly Neurologic: PERRL, EOMI, accommodation nl, no face palsy, no dysarthria Psychiatric: A+Ox3, euthymic affect Results & Data Vital Signs (Past 12 Hours) Vital Signs Temp Pulse Pulse Resp BP BP Pulse Ox 02/05/23 11:31 36.5 C 76 17 166/75 H 98 02/05/23 10:07 183/84 H 02/05/23 09:22 81 17 199/96 H 97 02/05/23 08:23 36.8 C 98 H 17 185/95 H 98 02/05/23 08:02 69 02/05/23 04:24 90 02/05/23 04:24 02/05/23 04:24 36.7 C 85 18 169/89 H 96 02/05/23 04:23 36.7 C 85 18 199/80 H 96 02/05/23 04:23 02/05/23 03:40 89 19 97 02/05/23 03:30 79 15 95 02/05/23 03:30 176/88 H 02/05/23 03:20 89 11 L 02/05/23 03:00 78 19 98 02/05/23 03:00 190/94 H 02/05/23 02:50 86 16 98 02/05/23 02:40 78 15 97 02/05/23 02:30 73 29 H 97 02/05/23 02:30 185/98 H 02/05/23 02:20 96 02/05/23 02:10 74 15 98 02/05/23 02:00 70 12 97 02/05/23 02:00 195/104 H 02/05/23 01:50 77 26 H 98 02/05/23 01:40 84 19 97 02/05/23 01:31 75 17 96 02/05/23 01:31 199/106 H 02/05/23 01:30 77 25 H 97 02/05/23 01:20 76 18 98 02/05/23 01:10 71 19 98 02/05/23 01:01 92 H 20 96 02/05/23 01:01 209/102 H 02/05/23 01:00 78 23 94 02/05/23 00:50 80 32 H 95 02/05/23 00:40 74 17 96 02/05/23 00:30 75 22 96 02/05/23 00:30 197/107 H 02/05/23 00:20 73 12 96 02/05/23 00:10 76 23 97 02/05/23 00:02 201/93 H 02/05/23 00:02 76 19 02/05/23 00:01 79 20 02/05/23 00:10 97 02/04/23 23:58 36.7 C 82 22 201/93 H 97 Pulse Ox O2 Del Method O2 Del Method 02/05/23 11:31 Room Air 02/05/23 10:07 02/05/23 09:22 Room Air 02/05/23 08:23 Room Air 02/05/23 08:02 02/05/23 04:24 02/05/23 04:24 Room Air 02/05/23 04:24 Room Air 02/05/23 04:23 Room Air 02/05/23 04:23 96 Room Air 02/05/23 03:40 02/05/23 03:30 02/05/23 03:30 02/05/23 03:20 02/05/23 03:00 02/05/23 03:00 02/05/23 02:50 02/05/23 02:40 02/05/23 02:30 02/05/23 02:30 02/05/23 02:20 02/05/23 02:10 02/05/23 02:00 02/05/23 02:00 02/05/23 01:50 02/05/23 01:40 02/05/23 01:31 02/05/23 01:31 02/05/23 01:30 02/05/23 01:20 02/05/23 01:10 02/05/23 01:01 02/05/23 01:01 02/05/23 01:00 02/05/23 00:50 02/05/23 00:40 02/05/23 00:30 02/05/23 00:30 02/05/23 00:20 02/05/23 00:10 02/05/23 00:02 02/05/23 00:02 02/05/23 00:01 02/05/23 00:10 Room Air 02/04/23 23:58 Room Air Laboratory Results Cardiac Enzymes 02/05/23 Range/Units 00:05 AST 25 (13-39) U/L Troponin I High Sens 9.8 (0-20) pg/ml Coagulation 02/05/23 Range/Units 00:05 APTT 22.5 (21.0-31.0) Seconds CBC 02/05/23 Range/Units 00:05 WBC 6.01 (4.8-10.8) K/ul RBC 4.58 L (4.70-6.10) M/uL Hgb 14.1 (14.0-18.0) g/dl Hct 41.6 L (42.0-52.0) % Plt Count 187 (130-400) K/uL Neut # (Auto) 3.85 (1.40-6.50) K/uL Lymph # (Auto) 1.31 (1.2-3.4) K/uL [place] # (Auto) 0.55 (0.11-0.59) K/uL Eos # (Auto) 0.22 (0-0.50) K/uL Baso # (Auto) 0.04 (0-0.2) K/uL Comprehensive Metabolic Panel 02/05/23 Range/Units 00:05 Sodium 135 L (136-145) mmol/L Potassium 3.7 (3.5-5.1) mmol/L Chloride 101 (98-107) mmol/L Carbon Dioxide 29 (21-32) mmol/L BUN 20 (6-23) mg/dl Creatinine 1.33 (0.6-1.4) mg/dl Glucose 194 H (70-99(Fasting)) mg/dl Calcium 8.9 (8.6-10.3) mg/dl AST 25 (13-39) U/L ALT 20 (7-52) U/L Alkaline Phosphatase 42 (34-104) U/L Total Protein 6.8 (6.0-8.3) gm/dl Albumin 4.0 (3.4-5.0) gm/dl Intake and Output 02/04/23 02/05/23 02/05/23 22:59 06:59 14:59 Intake Total 1000 / 1000 Balance 1000 / 1000 Intake: IV 1000 / 1000 Lactated Ringer's 1,000 ml @ 60 1000 / 1000 mls/hr IV .[id number] ONE Rx#: [id number] Other: # Unmeasured Voids 1 Weight 77.2 kg Weight Measurement Method Standing Scale Diagnostic Findings Chest x-ray: No active chest disease as per radiology report. CT angiogram of the chest respiratory motion artifact noted, no definite evidence of pulmonary embolism, subsegmental atelectatic changes noted per radiology report. No pleural effusion no pneumothorax. Coronary artery calcifications noted. EKG reveals sinus rhythm at 79 bpm, with mild nonspecific repolarization changes. Echocardiogram performed 02/05/2023 and reviewed independently: Mild concentric left ventricular hypertrophy, normal LV wall motion, LVEF of 60 to 65% (normal) Trace mitral regurgitation is present Grade 1 diastolic dysfunction is present
[2023-02-05] MEDS: LOSARTAN POTASSIUM 25 MG TAB PO SCH (12:58)
[2023-02-06 07:07] LABS: Albumin Globulin Ratio 1.4 (0.9-2); Albumin Level 3.7 gm/dl (3.4-5.0); BUN Creatinine Ratio 15.2 (10-20); Chol HDL Ratio 4.2 (0-5); Creatinine Clr Calc Pharmacy 54.3 ml/min; Est GFR (African American) 73.6 ml/min; Est GFR (Non-African American) 63.5 ml/min; Globulin 2.7 gm/dl (2.5-4.0); Phosphorus 3.3 mg/dl (2.5-4.9); Potassium 4.1 mmol/L (3.5-5.1); Total Protein 6.4 gm/dl (6.0-8.3)
[2023-02-06] MEDS: LOSARTAN POTASSIUM 25 MG TAB PO SCH (08:28)
[2023-02-06] MEDS: ENOXAPARIN INJ 40 MG/0.4 ML SYR SQ SCH (08:29)
[2023-02-06] MEDS: amLODIPine BESYLATE 5 MG TAB PO SCH (11:35)
--- NOTE | 2023-02-06 13:11 | Cardiology Progress Note ---
Date of Service February 06, 2023 Assessment & Plan (1) Hypertensive urgency: Plan: - BP had been better yesterday afternoon, but back up again this am and thus far today. -Increase losartan to 25 mg BID. Add amlodipine 5 mg daily. -add spironolactone 12.5 mg daily. Monitor sodium. -Remain in hospital on telemetry. (2) Coronary artery calcification seen on CAT scan: Plan: - Because of concerns of baseline hypoxia upon arrival he underwent a CT angiogram is negative for pulmonary embolism. There was however the incidental finding of coronary artery calcifications. -LDL 149. -Start atorvastatin 10 mg daily. Admission and Anticipated Discharge Date Admission Date: February 05, 2023 Subjective Patient seen in cardiology follow up. He feels well. Denies chest discomfort or shortness of breath. His mental status is normal. Telemetry reveals sinus rhythm in the 60s. Review of Systems Review of Systems: All systems reviewed & are unremarkable except as noted in HPI & below Physical Exam Physical Exam: Temp Pulse Resp BP Pulse Ox O2 Del Method 36.4 C L 69 18 200/90 H 96 Room Air 02/06/23 11:57 02/06/23 11:57 02/06/23 11:57 02/06/23 11:57 02/06/23 11:57 02/06/23 11:57 Constitutional: WD/WN, vitals as above Eyes: PERRL, conjunctivae normal, anicteric sclerae Respiratory: normal respiratory effort, lungs clear to auscultation Cardiovascular: RRR, no murmur, no edema Gastrointestinal (Abdomen): normal bowel sounds, soft, nontender, no hepatosplenomegaly Neurologic: PERRL, EOMI, accommodation nl, no face palsy, no dysarthria Psychiatric: A+Ox3, euthymic affect Results & Data Vital Signs (Past 12 Hours) Vital Signs Temp Pulse Resp BP Pulse Ox O2 Del Method O2 Del Method 02/06/23 11:57 36.4 C L 69 18 200/90 H 96 Room Air 02/06/23 08:14 36.5 C 65 17 183/83 H 97 Room Air 02/06/23 04:23 Room Air 02/06/23 03:11 36.7 C 59 L 16 158/80 H 96 Room Air Diagnostic Findings Cardiac Enzymes 02/06/23 Range/Units 05:22 AST 21 (13-39) U/L Lipids 02/06/23 Range/Units 05:22 Triglycerides 110 (0-150) mg/dl Cholesterol 224 H (0-200) mg/dl HDL Cholesterol 53 mg/dl Cholesterol/HDL Ratio 4.2 (0-5) Comprehensive Metabolic Panel 02/06/23 Range/Units 05:22 Sodium 135 L (136-145) mmol/L Potassium 4.1 (3.5-5.1) mmol/L Chloride 103 (98-107) mmol/L Carbon Dioxide 29 (21-32) mmol/L BUN 17 (6-23) mg/dl Creatinine 1.12 (0.6-1.4) mg/dl Glucose 104 H (70-99(Fasting)) mg/dl Calcium 9.0 (8.6-10.3) mg/dl AST 21 (13-39) U/L ALT 16 (7-52) U/L Alkaline Phosphatase 38 (34-104) U/L Total Protein 6.4 (6.0-8.3) gm/dl Albumin 3.7 (3.4-5.0) gm/dl
--- NOTE | 2023-02-06 14:20 | Hospitalist Progress Note ---
Date of Service February 06, 2023 Assessment & Plan (1) Hypertensive urgency: Plan: Possible BP elevation given cardiomegaly on CT imaging Transient unresponsiveness (which patient denies)/weakness Possibly from transient hypotension Rule out arrhythmia, valvular pathology Medical telemetry Echo obtained and cardiology consulted Echo - mild concentric LVH. LV wall motion is normal. LVEF 60 to 65%. There is trace mitral regurg. Cardiology started pt on losartan and BP still elevated - increased dose to 25 bid Also started amlodipine 5 mg daily and spironolactone 12.5 mg daily Given findings of coronary artery calcifications on CT and LDL 149 - started atorvastatin 10 mg daily Subclinical hypothyroidism - Recheck TSH next month outpatient Hyperglycemia rule out DM ->Hemoglobin A1c 5.8% DVT prophylaxis with Lovenox subcu Full code Admission and Anticipated Discharge Date Admission Date: February 05, 2023 Subjective Pt seen in follow up of uncontrolled HTN, poss. syncope Currently sitting up in bed, in no acute distress, BP continues to be uncontrolled No chest pain, no headache Patient has been ambulatory, and denies any dizziness or lightheadedness Review of Systems Review of Systems: All systems reviewed & are unremarkable except as noted in Subjective Physical Exam Physical Exam: GENERAL: Comfortable, pleasant, no respiratory distress SKIN: Normal color, warm HEENT: NC/AT, EOMI, PERRL NECK : Supple CHEST : CTA, no tenderness HEART : RRR, no obvious murmurs ABDOMEN: no distention, nontender, + bowel sounds EXTREMITIES : No LE swelling/tenderness, moves extremities NEUROLOGIC : Coherent, no facial asymmetry, speech fluent, moves extremities Results & Data Results & Data Vital Signs (Past 12 Hours) Vital Signs Temp Pulse Resp BP Pulse Ox O2 Del Method O2 Del Method 02/06/23 11:57 36.4 C L 69 18 200/90 H 96 Room Air 02/06/23 08:14 36.5 C 65 17 183/83 H 97 Room Air 02/06/23 04:23 Room Air 02/06/23 03:11 36.7 C 59 L 16 158/80 H 96 Room Air Laboratory Results 02/06/23 Range/Units 05:22 Sodium 135 L (136-145) mmol/L Potassium 4.1 (3.5-5.1) mmol/L Chloride 103 (98-107) mmol/L Carbon Dioxide 29 (21-32) mmol/L Anion Gap 3 (3-11) BUN 17 (6-23) mg/dl Creatinine 1.12 (0.6-1.4) mg/dl Est Cr Clr Drug Dosing 54.3 ml/min Est GFR ( Amer) 73.6 ml/min Est GFR (Non-Af Amer) 63.5 ml/min BUN/Creatinine Ratio 15.2 (10-20) Glucose 104 H (70-99(Fasting)) mg/dl Calcium 9.0 (8.6-10.3) mg/dl Phosphorus 3.3 (2.5-4.9) mg/dl Magnesium 2.0 (1.7-2.4) mg/dl Total Bilirubin 1.0 D (0.2-1.0) mg/dl AST 21 (13-39) U/L ALT 16 (7-52) U/L Alkaline Phosphatase 38 (34-104) U/L Total Protein 6.4 (6.0-8.3) gm/dl Albumin 3.7 (3.4-5.0) gm/dl Globulin 2.7 (2.5-4.0) gm/dl Albumin/Globulin Ratio 1.4 (0.9-2) Triglycerides 110 (0-150) mg/dl Cholesterol 224 H (0-200) mg/dl LDL Cholesterol, Calc 149 mg/dl VLDL Cholesterol, Calc 22 (0-30) mg/dl HDL Cholesterol 53 mg/dl Cholesterol/HDL Ratio 4.2 (0-5) Medications Administered Current Inpatient Medications Acetaminophen (Acetaminophen 325 Mg Tab) 650 mg PO Q4H PRN PRN Reason: Pain or Fever Stop: 03/07/23 04:22 Amlodipine Besylate (Amlodipine Besylate 5 Mg Tab) 5 mg PO [facility] Stop: 03/08/23 11:14 Last Admin: 02/06/23 11:35 Dose: 5 mg Atorvastatin Calcium (Atorvastatin 10 Mg Tab) 10 mg PO [facility] Stop: 03/08/23 13:14 Enoxaparin Sodium (Enoxaparin Inj 40 Mg/0.4 Ml Syr) 40 mg SQ [facility] Stop: 03/07/23 08:59 Last Admin: 02/06/23 08:29 Dose: Not Given Promethazine HCl 6.25 mg/ (Sodium Chloride) 50.25 mls @ 201 mls/hr IV Q6H PRN PRN Reason: Nausea And Vomiting Stop: 03/07/23 04:22 Losartan Potassium (Losartan Potassium 25 Mg Tab) 25 mg PO BID [facility] Stop: 03/08/23 20:59 Spironolactone (Spironolactone 12.5 Mg Tab) 12.5 mg PO DAILY [facility] Stop: 03/08/23 13:14
[2023-02-06] MEDS: ATORVASTATIN 10 MG TAB PO SCH (14:47)
[2023-02-06] MEDS: SPIRONOLACTONE 12.5 MG TAB PO SCH (14:48)
[2023-02-06] MEDS ORDERED: LOSARTAN POTASSIUM 25 MG TAB PO SCH (21:00)
[2023-02-06] MEDS ORDERED: LOSARTAN POTASSIUM 25 MG TAB PO ONE (21:45)
--- NOTE | 2023-02-07 05:53 | Electrocardiogram Report ---
Test Reason : Blood Pressure : / mmHG Vent. Rate : 079 BPM Atrial Rate : 079 BPM P-R Int : 188 ms QRS Dur : 090 ms QT Int : 390 ms P-R-T Axes : 049 003 035 degrees QTc Int : 447 ms Normal sinus rhythm Nonspecific ST abnormality Abnormal ECG No previous ECGs available Confirmed by Reddy Dumont ([id number]) on 02/07/2023 5:53:38 AM Referred By: REFERRED SELF Confirmed By:Reddy Dumont
--- NOTE | 2023-02-07 06:57 | Hospitalist Progress Note ---
Date of Service February 07, 2023 Assessment & Plan (1) Hypertensive urgency: Plan: Transient unresponsiveness (which patient denies)/weakness Possibly from above Rule out arrhythmia, valvular pathology Medical telemetry Echo obtained and cardiology consulted Echo - mild concentric LVH. LV wall motion is normal. LVEF 60 to 65%. There is trace mitral regurg. Cardiology started pt on losartan and BP still elevated - increased dose to 25 bid Also started amlodipine 5 mg daily and spironolactone 12.5 mg daily - and pt still elevated 02/07/23 -Consider discharge on losartan 100 mg daily, amlodipine 10 mg daily, spironolactone 12.5 mg daily. -Hesitant to increase spironolactone to 25 mg or add a thiazide diuretic because of mild hyponatremia. -He is not a good candidate for a beta audrey, verapamil, or clonidine as his baseline HR is in the 60s. -Will need follow up as outpt in 1-2 weeks with follow up basic metabolic panel. -Pt states he will follow up in [place]. Given findings of coronary artery calcifications on CT and LDL 149 - started atorvastatin 10 mg daily Subclinical hypothyroidism - Recheck TSH next month outpatient Hyperglycemia rule out DM ->Hemoglobin A1c 5.8% DVT prophylaxis with Lovenox subcu Full code Admission and Anticipated Discharge Date Admission Date: February 06, 2023 Subjective Pt seen in follow up of uncontrolled HTN, poss. syncope Currently sitting up in bed, in no acute distress, BP continues to be uncontrolled No chest pain, no headache Patient has been ambulatory, and denies any dizziness or lightheadedness Cardiology following and adjusting meds - discussed w/ cardiology today Review of Systems Review of Systems: All systems reviewed & are unremarkable except as noted in Subjective Physical Exam Physical Exam: GENERAL: Comfortable, pleasant, no respiratory distress SKIN: Normal color, warm HEENT: NC/AT, EOMI, PERRL NECK : Supple CHEST : CTA, no tenderness HEART : RRR, no obvious murmurs ABDOMEN: no distention, nontender, + bowel sounds EXTREMITIES : No LE swelling/tenderness, moves extremities NEUROLOGIC : Coherent, no facial asymmetry, speech fluent, moves extremities Results & Data Results & Data Vital Signs (Past 12 Hours) Vital Signs Temp Pulse Pulse Resp BP Pulse Ox O2 Del Method 02/07/23 03:01 36.5 C 67 16 173/68 H 96 Room Air 02/07/23 00:29 178/92 H 02/06/23 21:58 69 02/06/23 22:48 199/90 H 02/06/23 20:59 180/103 H 02/06/23 19:35 36.4 C L 66 18 200/90 H 98 Room Air Laboratory Results 02/06/23 Range/Units 05:22 Sodium 135 L (136-145) mmol/L Potassium 4.1 (3.5-5.1) mmol/L Chloride 103 (98-107) mmol/L Carbon Dioxide 29 (21-32) mmol/L Anion Gap 3 (3-11) BUN 17 (6-23) mg/dl Creatinine 1.12 (0.6-1.4) mg/dl Est Cr Clr Drug Dosing 54.3 ml/min Est GFR ( Amer) 73.6 ml/min Est GFR (Non-Af Amer) 63.5 ml/min BUN/Creatinine Ratio 15.2 (10-20) Glucose 104 H (70-99(Fasting)) mg/dl Calcium 9.0 (8.6-10.3) mg/dl Phosphorus 3.3 (2.5-4.9) mg/dl Magnesium 2.0 (1.7-2.4) mg/dl Total Bilirubin 1.0 D (0.2-1.0) mg/dl AST 21 (13-39) U/L ALT 16 (7-52) U/L Alkaline Phosphatase 38 (34-104) U/L Total Protein 6.4 (6.0-8.3) gm/dl Albumin 3.7 (3.4-5.0) gm/dl Globulin 2.7 (2.5-4.0) gm/dl Albumin/Globulin Ratio 1.4 (0.9-2) Triglycerides 110 (0-150) mg/dl Cholesterol 224 H (0-200) mg/dl LDL Cholesterol, Calc 149 mg/dl VLDL Cholesterol, Calc 22 (0-30) mg/dl HDL Cholesterol 53 mg/dl Cholesterol/HDL Ratio 4.2 (0-5) Medications Administered Current Inpatient Medications Acetaminophen (Acetaminophen 325 Mg Tab) 650 mg PO Q4H PRN PRN Reason: Pain or Fever Stop: 03/07/23 04:22 Amlodipine Besylate (Amlodipine Besylate 5 Mg Tab) 5 mg PO QAM [facility] Stop: 03/08/23 11:14 Last Admin: 02/06/23 11:35 Dose: 5 mg Atorvastatin Calcium (Atorvastatin 10 Mg Tab) 10 mg PO QAM [facility] Stop: 03/08/23 13:14 Last Admin: 02/06/23 14:47 Dose: 10 mg Enoxaparin Sodium (Enoxaparin Inj 40 Mg/0.4 Ml Syr) 40 mg SQ QAM [facility] Stop: 03/07/23 08:59 Last Admin: 02/06/23 08:29 Dose: Not Given Promethazine HCl 6.25 mg/ (Sodium Chloride) 50.25 mls @ 201 mls/hr IV Q6H PRN PRN Reason: Nausea And Vomiting Stop: 03/07/23 04:22 Losartan Potassium (Losartan Potassium 50 Mg Tab) 50 mg PO BID [facility] Stop: 03/09/23 08:59 Spironolactone (Spironolactone 12.5 Mg Tab) 12.5 mg PO DAILY [facility] Stop: 03/08/23 13:14 Last Admin: 02/06/23 14:48 Dose: 12.5 mg
[2023-02-07] MEDS: LOSARTAN POTASSIUM 50 MG TAB PO SCH ×2 (07:59→20:46)
[2023-02-07] MEDS: SPIRONOLACTONE 12.5 MG TAB PO SCH (08:00)
[2023-02-07] MEDS: amLODIPine BESYLATE 5 MG TAB PO SCH (08:00)
[2023-02-07] MEDS: ENOXAPARIN INJ 40 MG/0.4 ML SYR SQ SCH (08:00)
[2023-02-07] MEDS: ATORVASTATIN 10 MG TAB PO SCH (08:00)
[2023-02-07 08:20] LABS: BUN Creatinine Ratio 19.6 (10-20); Calcium 9.1 mg/dl (8.6-10.3); Creatinine Clr Calc Pharmacy 59.6 ml/min; Est GFR (African American) 82.4 ml/min; Est GFR (Non-African American) 71.1 ml/min; Magnesium 1.9 mg/dl (1.7-2.4)
[2023-02-07] MEDS ORDERED: amLODIPine BESYLATE 5 MG TAB PO ONE (12:23)
--- NOTE | 2023-02-07 12:25 | Cardiology Progress Note ---
Date of Service February 07, 2023 Assessment & Plan (1) Hypertensive urgency: Plan: -Consider discharge on losartan 100 mg daily, amlodipine 10 mg daily, spironolactone 12.5 mg daily. -Hesitant to increase spironolactone to 25 mg or add a thiazide diuretic because of mild hyponatremia. -He is not a good candidate for a beta audrey, verapamil, or clonidine as his baseline HR is in the 60s. -Will need follow up as outpt in 1-2 weeks with follow up basic metabolic panel. -Pt states he will follow up in [place]. (2) Coronary artery calcification seen on CAT scan: Plan: - Because of concerns of baseline hypoxia upon arrival he underwent a CT angiogram is negative for pulmonary embolism. There was however the incidental finding of coronary artery calcifications. -LDL 149. -Started atorvastatin 10 mg daily. Change to simvastatin 10 mg daily at bedtime due to cost. The Simvastatin, losartan, amlodipine, and HCTZ can all be obtained at [facility] for $9 / 30 day supply without insurance coverage. Admission and Anticipated Discharge Date Admission Date: February 06, 2023 Subjective Patient seen in follow up. Denies chest pain or shortness of breath. Telemetry reveals sinus rhythm and sinus bradycardia with rate in the 50s to 60s. Physical Exam Constitutional: WD/WN, vitals as above Eyes: PERRL, conjunctivae normal, anicteric sclerae Respiratory: normal respiratory effort, lungs clear to auscultation Cardiovascular: RRR, no murmur, no edema Gastrointestinal (Abdomen): normal bowel sounds, soft, nontender, no hepatosplenomegaly Neurologic: PERRL, EOMI, accommodation nl, no face palsy, no dysarthria Psychiatric: A+Ox3, euthymic affect Results & Data Vital Signs (Past 12 Hours) Vital Signs Temp Pulse Pulse Resp BP Pulse Ox O2 Del Method 02/07/23 11:15 35.9 C L 69 16 198/95 H 94 Room Air 02/07/23 10:03 36.4 C L 72 18 168/98 H 96 Room Air 02/07/23 07:47 65 02/07/23 07:32 34.7 C L 71 20 213/118 H 96 Room Air 02/07/23 03:01 36.5 C 67 16 173/68 H 96 Room Air 02/07/23 00:29 178/92 H Laboratory Results Comprehensive Metabolic Panel 02/07/23 Range/Units 06:52 Sodium 132 L (136-145) mmol/L Potassium 4.0 (3.5-5.1) mmol/L Chloride 100 (98-107) mmol/L Carbon Dioxide 28 (21-32) mmol/L BUN 20 (6-23) mg/dl Creatinine 1.02 (0.6-1.4) mg/dl Glucose 102 H (70-99(Fasting)) mg/dl Calcium 9.1 (8.6-10.3) mg/dl Intake and Output 02/06/23 02/07/23 02/07/23 22:59 06:59 14:59 Intake Total 240 / 440 100 / 440 Balance 240 / 440 100 / 440 Intake: Oral 240 / 440 100 / 440 Other: Weight 77.3 kg Weight Measurement Method Built in [facility]
[2023-02-07] MEDS ORDERED: hydrALAZINE HCL 20 MG/ML VIAL IV STA (23:37)
[2023-02-08 07:48] LABS: BUN Creatinine Ratio 20.7 (10-20); Calcium 9.5 mg/dl (8.6-10.3); Creatinine Clr Calc Pharmacy 54.8 ml/min; Est GFR (African American) 74.4 ml/min; Est GFR (Non-African American) 64.2 ml/min; Potassium 4.8 mmol/L (3.5-5.1)
[2023-02-08] MEDS: LOSARTAN POTASSIUM 50 MG TAB PO SCH ×2 (09:00→20:33)
[2023-02-08] MEDS: amLODIPine BESYLATE 5 MG TAB PO SCH (09:00)
[2023-02-08] MEDS: ENOXAPARIN INJ 40 MG/0.4 ML SYR SQ SCH (09:03)
[2023-02-08] MEDS: SPIRONOLACTONE 12.5 MG TAB PO SCH (10:33)
--- NOTE | 2023-02-08 15:50 | Hospitalist Progress Note ---
Date of Service February 08, 2023 Assessment & Plan (1) Hypertensive urgency: Plan: Transient unresponsiveness (which patient denies)/weakness Possibly from above Rule out arrhythmia, valvular pathology Medical telemetry Echo obtained and cardiology consulted Echo - mild concentric LVH. LV wall motion is normal. LVEF 60 to 65%. There is trace mitral regurg. Cardiology started pt on losartan and BP still elevated Also started amlodipine 5 mg daily and spironolactone 12.5 mg daily - and pt still elevated 02/07/23 -Consider discharge on losartan 100 mg daily, amlodipine 10 mg daily, spironolactone 12.5 mg daily. -Hesitant to increase spironolactone to 25 mg or add a thiazide diuretic because of mild hyponatremia. -He is not a good candidate for a beta audrey, verapamil, or clonidine as his baseline HR is in the 60s. -Will need follow up as outpt in 1-2 weeks with follow up basic metabolic panel. -Pt states he will follow up in [place]. Given findings of coronary artery calcifications on CT and LDL 149 - started atorvastatin 10 mg daily 02/09 -last evening systolic blood pressure still elevated to 200s, and required IV hydralazine, continue to monitor on the current regimen, will discuss further with cardiology as needed Subclinical hypothyroidism - Recheck TSH next month outpatient Hyperglycemia rule out DM ->Hemoglobin A1c 5.8% DVT prophylaxis with Lovenox subcu Full code Admission and Anticipated Discharge Date Admission Date: February 06, 2023 Subjective Pt seen in follow up of uncontrolled HTN, poss. syncope Currently sitting up in bed, in no acute distress, BP improved however overnight systolic pressure elevated to 200 and required IV hydralazine No chest pain, no headache Patient has been ambulatory, and denies any dizziness or lightheadedness Review of Systems Review of Systems: All systems reviewed & are unremarkable except as noted in Subjective Physical Exam Physical Exam: GENERAL: Comfortable, pleasant, no respiratory distress SKIN: Normal color, warm HEENT: NC/AT, EOMI, PERRL NECK : Supple CHEST : CTA, no tenderness HEART : RRR, no obvious murmurs ABDOMEN: no distention, nontender, + bowel sounds EXTREMITIES : No LE swelling/tenderness, moves extremities NEUROLOGIC : Coherent, no facial asymmetry, speech fluent, moves extremities Results & Data Results & Data Vital Signs (Past 12 Hours) Vital Signs Temp Pulse Pulse Resp BP Pulse Ox O2 Del Method 02/08/23 15:33 63 02/08/23 12:01 36.4 C L 69 17 158/87 H 98 Room Air 02/08/23 08:30 36.4 C L 72 18 174/89 H 98 Room Air 02/08/23 07:01 67 Laboratory Results 02/08/23 Range/Units 06:22 Sodium 135 L (136-145) mmol/L Potassium 4.8 (3.5-5.1) mmol/L Chloride 103 (98-107) mmol/L Carbon Dioxide 28 (21-32) mmol/L Anion Gap 4 (3-11) BUN 23 (6-23) mg/dl Creatinine 1.11 (0.6-1.4) mg/dl Est Cr Clr Drug Dosing 54.8 ml/min Est GFR ( Amer) 74.4 ml/min Est GFR (Non-Af Amer) 64.2 ml/min BUN/Creatinine Ratio 20.7 H (10-20) Glucose 106 H (70-99(Fasting)) mg/dl Calcium 9.5 (8.6-10.3) mg/dl Medications Administered Current Inpatient Medications Acetaminophen (Acetaminophen 325 Mg Tab) 650 mg PO Q4H PRN PRN Reason: Pain or Fever Stop: 03/07/23 04:22 Amlodipine Besylate ([facility]odipine Besylate 5 Mg Tab) [facility] [place]: 03/10/23 08:59 Last Admin: 02/08/23 09:00 Dose: 10 mg Enoxaparin Sodium (Enoxaparin Inj 40 Mg/0.4 Ml Syr) 40 mg SQ QAM [facility] Stop: 03/07/23 08:59 Last Admin: 02/08/23 09:03 Dose: Not Given Promethazine HCl 6.25 mg/ (Sodium Chloride) 50.25 mls @ 201 mls/hr IV Q6H PRN PRN Reason: Nausea And Vomiting Stop: 03/07/23 04:22 Losartan Potassium (Losartan Potassium 50 Mg Tab) 50 mg PO BID [facility] Stop: 03/09/23 08:59 Last Admin: 02/08/23 09:00 Dose: 50 mg Simvastatin (Simvastatin 10 Mg Tab) 10 mg PO PM [facility] Stop: 03/10/23 20:59 Spironolactone (Spironolactone 12.5 Mg Tab) 12.5 mg PO DAILY [facility] Stop: 03/08/23 13:14 Last Admin: 02/08/23 10:33 Dose: 12.5 mg
[2023-02-08] MEDS: SIMVASTATIN 10 MG TAB PO SCH (20:34)
[2023-02-09 06:42] LABS: Basophils # (auto) 0.05 K/uL (0-0.2); Basophils % (auto) 0.8 %; Eosinophils # (auto) 0.27 K/uL (0-0.50); Eosinophils % (auto) 4.2 %; Hematocrit (blood only) 42.2 % (42.0-52.0); Hemoglobin 14.8 g/dl (14.0-18.0); Immature Granulocytes # (auto) 0.07 K/uL (0.01-0.20); Immature Granulocytes % (auto) 1.1 %; Lymphocytes # (auto) 1.06 K/uL (1.2-3.4); Lymphocytes % (auto) 16.6 %; Mean Corpuscular Hemoglobin 30.9 pg (25.0-34.0); Mean Corpuscular Hgb Conc 35.1 g/dL (32.0-36.0); Mean Corpuscular Volume 88.1 fL (80.0-100.0); Mean Platelet Volume 10.5 fL (9.4-12.4); Monocytes # (auto) 0.74 K/uL (0.11-0.59); Monocytes % (auto) 11.6 %; Neutrophils % (auto) 65.7 %; Platelet Count 209 K/uL (130-400); RDW Coefficient of Variation 12.7 % (11.5-14.5); RDW Standard Deviation 41.2 fL (36.4-46.3); Red Blood Count 4.79 M/uL (4.70-6.10); White Blood Count 6.39 K/ul (4.8-10.8)
[2023-02-09 07:26] LABS: BUN Creatinine Ratio 22.2 (10-20); Calcium 9.3 mg/dl (8.6-10.3); Est GFR (African American) 69.8 ml/min; Est GFR (Non-African American) 60.2 ml/min; Potassium 4.9 mmol/L (3.5-5.1)
[2023-02-09] MEDS: amLODIPine BESYLATE 5 MG TAB PO SCH (08:21)
[2023-02-09] MEDS: SPIRONOLACTONE 12.5 MG TAB PO SCH (08:21)
[2023-02-09] MEDS: LOSARTAN POTASSIUM 50 MG TAB PO SCH ×2 (08:21→20:28)
[2023-02-09] MEDS: ENOXAPARIN INJ 40 MG/0.4 ML SYR SQ SCH (08:23)
--- NOTE | 2023-02-09 10:39 | Hospitalist Progress Note ---
Date of Service February 09, 2023 Assessment & Plan (1) Hypertensive urgency: Plan: Transient unresponsiveness (which patient denies)/weakness Possibly from above Rule out arrhythmia, valvular pathology Medical telemetry Echo obtained and cardiology consulted Echo - mild concentric LVH. LV wall motion is normal. LVEF 60 to 65%. There is trace mitral regurg. Cardiology started pt on losartan and BP still elevated Also started amlodipine 5 mg daily and spironolactone 12.5 mg daily - and pt still elevated 02/07/23 -Consider discharge on losartan 100 mg daily, amlodipine 10 mg daily, spironolactone 12.5 mg daily. -Hesitant to increase spironolactone to 25 mg or add a thiazide diuretic because of mild hyponatremia. -He is not a good candidate for a beta audrey, verapamil, or clonidine as his baseline HR is in the 60s. -Will need follow up as outpt in 1-2 weeks with follow up basic metabolic panel. -Pt states he will follow up in [place]. Given findings of coronary artery calcifications on CT and LDL 149 - started atorvastatin 10 mg daily 02/08 -last evening systolic blood pressure still elevated to 200s, and required IV hydralazine, continue to monitor on the current regimen, will discuss further with cardiology as needed 02/09 -last evening systolic blood pressure again elevated to 180s. Discussed with cardiology, will add small dose Coreg 3.125 twice daily. Subclinical hypothyroidism - Recheck TSH next month outpatient Hyperglycemia rule out DM ->Hemoglobin A1c 5.8% DVT prophylaxis with Lovenox subcu Full code Admission and Anticipated Discharge Date Admission Date: February 06, 2023 Subjective Pt seen in follow up of uncontrolled HTN, poss. syncope Currently sitting up in bed, in no acute distress, BP improved however overnight again elevated No chest pain, no headache Patient has been ambulatory, and denies any dizziness or lightheadedness Discussed w/ cardiology today - will add small dose coreg Review of Systems Review of Systems: All systems reviewed & are unremarkable except as noted in Subjective Physical Exam Physical Exam: GENERAL: Comfortable, pleasant, no respiratory distress SKIN: Normal color, warm HEENT: NC/AT, EOMI, PERRL NECK : Supple CHEST : CTA, no tenderness HEART : RRR, no obvious murmurs ABDOMEN: no distention, nontender, + bowel sounds EXTREMITIES : No LE swelling/tenderness, moves extremities NEUROLOGIC : Coherent, no facial asymmetry, speech fluent, moves extremities Results & Data Results & Data Vital Signs (Past 12 Hours) Vital Signs Temp Pulse Pulse Resp BP BP Pulse Ox 02/09/23 08:27 36.7 C 72 18 170/81 H 95 02/09/23 07:39 57 L 02/09/23 04:44 36.6 C 65 18 167/81 H 95 02/08/23 23:45 36.3 C L 61 18 184/89 H 97 O2 Del Method 02/09/23 08:27 Room Air 02/09/23 07:39 02/09/23 04:44 Room Air 02/08/23 23:45 Room Air Laboratory Results 02/09/23 02/09/23 Range/Units 06:28 06:25 WBC 6.39 (4.8-10.8) K/ul RBC 4.79 (4.70-6.10) M/uL Hgb 14.8 (14.0-18.0) g/dl Hct 42.2 (42.0-52.0) % MCV 88.1 (80.0-100.0) fL MCH 30.9 (25.0-34.0) pg MCHC 35.1 (32.0-36.0) g/dL RDW Std Deviation 41.2 (36.4-46.3) fL RDW Coeff of Stephanie 12.7 (11.5-14.5) % Plt Count 209 (130-400) K/uL MPV 10.5 (9.4-12.4) fL Immature Gran % (Auto) 1.1 % Neut % (Auto) 65.7 % Lymph % (Auto) 16.6 % [place] % (Auto) 11.6 % Eos % (Auto) 4.2 % Baso % (Auto) 0.8 % Neut # (Auto) 4.20 (1.40-6.50) K/uL Lymph # (Auto) 1.06 L (1.2-3.4) K/uL [place] # (Auto) 0.74 H (0.11-0.59) K/uL Eos # (Auto) 0.27 (0-0.50) K/uL Baso # (Auto) 0.05 (0-0.2) K/uL Immature Gran # (Auto) 0.07 (0.01-0.20) K/uL Sodium 132 L (136-145) mmol/L Potassium 4.9 (3.5-5.1) mmol/L Chloride 101 (98-107) mmol/L Carbon Dioxide 29 (21-32) mmol/L Anion Gap 2 L (3-11) BUN 26 H (6-23) mg/dl Creatinine 1.17 (0.6-1.4) mg/dl Est Cr Clr Drug Dosing 52.0 ml/min Est GFR ( Amer) 69.8 ml/min Est GFR (Non-Af Amer) 60.2 ml/min BUN/Creatinine Ratio 22.2 H (10-20) Glucose 109 H (70-99(Fasting)) mg/dl Calcium 9.3 (8.6-10.3) mg/dl Medications Administered Current Inpatient Medications Acetaminophen (Acetaminophen 325 Mg Tab) 650 mg PO Q4H PRN PRN Reason: Pain or Fever Stop: 03/07/23 04:22 Amlodipine Besylate (Amlodipine Besylate 5 Mg Tab) 10 mg PO QAM [facility] Stop: 03/10/23 08:59 Last Admin: 02/09/23 08:21 Dose: 10 mg Carvedilol (Carvedilol 3.125 Mg Tab) 3.125 mg PO BIDM [facility] Stop: 03/11/23 16:59 Enoxaparin Sodium (Enoxaparin Inj 40 Mg/0.4 Ml Syr) 40 mg SQ QAM [facility] Stop: 03/07/23 08:59 Last Admin: 02/09/23 08:23 Dose: Not Given Promethazine HCl 6.25 mg/ (Sodium Chloride) 50.25 mls @ 201 mls/hr IV Q6H PRN PRN Reason: Nausea And Vomiting Stop: 03/07/23 04:22 Losartan Potassium (Losartan Potassium 50 Mg Tab) 50 mg PO BID [facility] Stop: 03/09/23 08:59 Last Admin: 02/09/23 08:21 Dose: 50 mg Simvastatin (Simvastatin 10 Mg Tab) 10 mg PO PM [facility] Stop: 03/10/23 20:59 Last Admin: 02/08/23 20:34 Dose: 10 mg Spironolactone (Spironolactone 12.5 Mg Tab) 12.5 mg PO DAILY [facility] Stop: 03/08/23 13:14 Last Admin: 02/09/23 08:21 Dose: 12.5 mg
[2023-02-09] MEDS: carvediloL 3.125 MG TAB PO SCH (17:26)
[2023-02-09] MEDS: SIMVASTATIN 10 MG TAB PO SCH (20:29)
[2023-02-10 06:48] LABS: BUN Creatinine Ratio 19.4 (10-20); Est GFR (Non-African American) 56.1 ml/min; Potassium 4.5 mmol/L (3.5-5.1)
[2023-02-10] MEDS: LOSARTAN POTASSIUM 50 MG TAB PO SCH ×2 (08:27→20:57)
[2023-02-10] MEDS: SPIRONOLACTONE 12.5 MG TAB PO SCH (08:28)
[2023-02-10] MEDS: amLODIPine BESYLATE 5 MG TAB PO SCH (08:28)
[2023-02-10] MEDS: carvediloL 3.125 MG TAB PO SCH ×2 (08:28→17:53)
[2023-02-10] MEDS: ENOXAPARIN INJ 40 MG/0.4 ML SYR SQ SCH (08:29)
--- NOTE | 2023-02-10 10:04 | Hospitalist Progress Note ---
Date of Service February 10, 2023 Assessment & Plan (1) Hypertensive urgency: Plan: Transient unresponsiveness (which patient denies)/weakness Possibly from above Rule out arrhythmia, valvular pathology Medical telemetry Echo obtained and cardiology consulted Echo - mild concentric LVH. LV wall motion is normal. LVEF 60 to 65%. There is trace mitral regurg. Cardiology started pt on losartan and BP still elevated Also started amlodipine 5 mg daily and spironolactone 12.5 mg daily - and pt still elevated 02/07/23 -Consider discharge on losartan 100 mg daily, amlodipine 10 mg daily, spironolactone 12.5 mg daily. -Hesitant to increase spironolactone to 25 mg or add a thiazide diuretic because of mild hyponatremia. -He is not a good candidate for a beta audrey, verapamil, or clonidine as his baseline HR is in the 60s. -Will need follow up as outpt in 1-2 weeks with follow up basic metabolic panel. -Pt states he will follow up in [place]. Given findings of coronary artery calcifications on CT and LDL 149 - started atorvastatin 10 mg daily 02/08 -last evening systolic blood pressure still elevated to 200s, and required IV hydralazine, continue to monitor on the current regimen, will discuss further with cardiology as needed 02/09 -last evening systolic blood pressure again elevated to 180s. Discussed with cardiology, will add small dose Coreg 3.125 twice daily. 02/10 blood pressure better controlled after starting Coreg however patient w/hyponatremia sodium 129. Discussed with nephrology, stopped Aldactone, started fluid restriction and urea. We will recheck BMP tomorrow. Subclinical hypothyroidism - Recheck TSH next month outpatient Hyperglycemia rule out DM ->Hemoglobin A1c 5.8% DVT prophylaxis with Lovenox subcu Full code Admission and Anticipated Discharge Date Admission Date: February 06, 2023 Subjective Pt seen in follow up of uncontrolled HTN, poss. syncope Currently sitting up in chair, in no acute distress, BP improved but pt hyponatremic No chest pain, no headache Patient has been ambulatory, and denies any dizziness or lightheadedness Discussed w/ nephrology - started FR and urea, stopped aldactone Review of Systems Review of Systems: All systems reviewed & are unremarkable except as noted in Subjective Physical Exam Physical Exam: GENERAL: Comfortable, pleasant, no respiratory distress SKIN: Normal color, warm HEENT: NC/AT, EOMI, PERRL NECK : Supple CHEST : CTA, no tenderness HEART : RRR, no obvious murmurs ABDOMEN: no distention, nontender, + bowel sounds EXTREMITIES : No LE swelling/tenderness, moves extremities NEUROLOGIC : Coherent, no facial asymmetry, speech fluent, moves extremities Results & Data Results & Data Vital Signs (Past 12 Hours) Vital Signs Temp Pulse Pulse Resp BP Pulse Ox O2 Del Method 02/10/23 07:41 36.4 C L 66 16 167/88 H 95 Room Air 02/10/23 07:11 58 L 02/10/23 04:52 36.9 C 92 H 20 125/68 95 Room Air 02/09/23 23:57 36.5 C 86 20 120/79 92 Room Air 02/09/23 22:48 59 L Laboratory Results 02/10/23 Range/Units 05:38 Sodium 129 L (136-145) mmol/L Potassium 4.5 (3.5-5.1) mmol/L Chloride 98 (98-107) mmol/L Carbon Dioxide 27 (21-32) mmol/L Anion Gap 4 (3-11) BUN 24 H (6-23) mg/dl Creatinine 1.24 (0.6-1.4) mg/dl Est Cr Clr Drug Dosing 49.0 ml/min Est GFR ( Amer) 65.0 ml/min Est GFR (Non-Af Amer) 56.1 ml/min BUN/Creatinine Ratio 19.4 (10-20) Glucose 99 (70-99(Fasting)) mg/dl Calcium 9.0 (8.6-10.3) mg/dl Magnesium 2.0 (1.7-2.4) mg/dl Medications Administered Current Inpatient Medications Acetaminophen (Acetaminophen 325 Mg Tab) 650 mg PO Q4H PRN PRN Reason: Pain or Fever Stop: 03/07/23 04:22 Amlodipine Besylate (Amlodipine Besylate 5 Mg Tab) 10 mg PO QAM [facility] Stop: 03/10/23 08:59 Last Admin: 02/10/23 08:28 Dose: 10 mg Carvedilol (Carvedilol 3.125 Mg Tab) 3.125 mg PO BIDM [facility] Stop: 03/11/23 16:59 Last Admin: 02/10/23 08:28 Dose: 3.125 mg Enoxaparin Sodium (Enoxaparin Inj 40 Mg/0.4 Ml Syr) 40 mg SQ QAM [facility] Stop: 03/07/23 08:59 Last Admin: 02/10/23 08:29 Dose: Not Given Promethazine HCl 6.25 mg/ (Sodium Chloride) 50.25 mls @ 201 mls/hr IV Q6H PRN PRN Reason: Nausea And Vomiting Stop: 03/07/23 04:22 Losartan Potassium (Losartan Potassium 50 Mg Tab) 50 mg PO BID [facility] Stop: 03/09/23 08:59 Last Admin: 02/10/23 08:27 Dose: 50 mg Simvastatin (Simvastatin 10 Mg Tab) 10 mg PO PM [facility] Stop: 03/10/23 20:59 Last Admin: 02/09/23 20:29 Dose: 10 mg Urea (Urea (Urea-Na) 15 Gm Pack) 15 gm PO BID [facility] Stop: 03/12/23 10:14
[2023-02-10] MEDS: UREA (UREA-NA) 15 GM PACK PO SCH ×2 (10:29→20:58)
[2023-02-10] MEDS: SIMVASTATIN 10 MG TAB PO SCH (20:57)
[2023-02-11 06:48] LABS: BUN Creatinine Ratio 38.1 (10-20); Calcium 9.4 mg/dl (8.6-10.3); Creatinine Clr Calc Pharmacy 51.5 ml/min; Est GFR (African American) 69.1 ml/min; Est GFR (Non-African American) 59.6 ml/min
--- NOTE | 2023-02-11 07:26 | Hospitalist Progress Note ---
Date of Service February 11, 2023 Assessment & Plan (1) Hypertensive urgency: Plan: Transient unresponsiveness (which patient denies)/weakness Possibly from above Rule out arrhythmia, valvular pathology Medical telemetry Echo obtained and cardiology consulted Echo - mild concentric LVH. LV wall motion is normal. LVEF 60 to 65%. There is trace mitral regurg. Cardiology started pt on losartan and BP still elevated Also started amlodipine 5 mg daily and spironolactone 12.5 mg daily - and pt still elevated 02/07/23 -Consider discharge on losartan 100 mg daily, amlodipine 10 mg daily, spironolactone 12.5 mg daily. -Hesitant to increase spironolactone to 25 mg or add a thiazide diuretic because of mild hyponatremia. -He is not a good candidate for a beta audrey, verapamil, or clonidine as his baseline HR is in the 60s. -Will need follow up as outpt in 1-2 weeks with follow up basic metabolic panel. -Pt states he will follow up in [place]. Given findings of coronary artery calcifications on CT and LDL 149 - started atorvastatin 10 mg daily 02/08 -last evening systolic blood pressure still elevated to 200s, and required IV hydralazine, continue to monitor on the current regimen, will discuss further with cardiology as needed 02/09 -last evening systolic blood pressure again elevated to 180s. Discussed with cardiology, will add small dose Coreg 3.125 twice daily. 02/10 blood pressure better controlled after starting Coreg however patient w/hyponatremia sodium 129. Discussed with nephrology, stopped Aldactone, started fluid restriction and urea. We will recheck BMP tomorrow. 02/11 patient still hyponatremic, however he also received Aldactone in the morning yesterday. Discussed with nephrology in detail. We will discharge on amlodipine 10 mg, losartan 50 mg twice a day, and Coreg 6.25 mg twice a day. Patient should adhere to fluid restriction. Sodium level will be checked on at [facility], with Dr. Maynard to follow-up on his blood work. Patient should continue with high-protein diet. Subclinical hypothyroidism - Recheck TSH next month outpatient Hyperglycemia rule out DM ->Hemoglobin A1c 5.8% DVT prophylaxis with Lovenox subcu Full code Admission and Anticipated Discharge Date Admission Date: February 06, 2023 Subjective Pt seen in follow up of uncontrolled HTN, poss. syncope Currently sitting up in chair, in no acute distress, BP improved but pt hyponatremic No chest pain, no headache Patient has been ambulatory, and denies any dizziness or lightheadedness Discussed w/ nephrology - started FR and urea, stopped aldactone Review of Systems Review of Systems: All systems reviewed & are unremarkable except as noted in Subjective Physical Exam Physical Exam: GENERAL: Comfortable, pleasant, no respiratory distress SKIN: Normal color, warm HEENT: NC/AT, EOMI, PERRL NECK : Supple CHEST : CTA, no tenderness HEART : RRR, no obvious murmurs ABDOMEN: no distention, nontender, + bowel sounds EXTREMITIES : No LE swelling/tenderness, moves extremities NEUROLOGIC : Coherent, no facial asymmetry, speech fluent, moves extremities Results & Data Results & Data Vital Signs (Past 12 Hours) Vital Signs Temp Pulse Pulse Resp BP BP Pulse Ox 02/11/23 03:59 36.4 C L 54 L 18 163/84 H 96 02/10/23 23:00 60 02/10/23 22:37 36.4 C L 59 L 18 132/87 97 O2 Del Method 02/11/23 03:59 Room Air 02/10/23 23:00 02/10/23 22:37 Room Air Laboratory Results 02/11/23 Range/Units 05:28 Sodium 128 L (136-145) mmol/L Potassium 5.0 (3.5-5.1) mmol/L Chloride 97 L (98-107) mmol/L Carbon Dioxide 27 (21-32) mmol/L Anion Gap 4 (3-11) BUN 45 H D (6-23) mg/dl Creatinine 1.18 (0.6-1.4) mg/dl Est Cr Clr Drug Dosing 51.5 ml/min Est GFR ( Amer) 69.1 ml/min Est GFR (Non-Af Amer) 59.6 ml/min BUN/Creatinine Ratio 38.1 H (10-20) Glucose 95 (70-99(Fasting)) mg/dl Calcium 9.4 (8.6-10.3) mg/dl Medications Administered Current Inpatient Medications Acetaminophen (Acetaminophen 325 Mg Tab) 650 mg PO Q4H PRN PRN Reason: Pain or Fever Stop: 03/07/23 04:22 Amlodipine Besylate (Amlodipine Besylate 5 Mg Tab) 10 mg PO QAM [facility] Stop: 03/10/23 08:59 Last Admin: 02/10/23 08:28 Dose: 10 mg Carvedilol (Carvedilol 3.125 Mg Tab) 3.125 mg PO BIDM [facility] Stop: 03/11/23 16:59 Last Admin: 02/10/23 17:53 Dose: 3.125 mg Enoxaparin Sodium (Enoxaparin Inj 40 Mg/0.4 Ml Syr) 40 mg SQ QAM [facility] Stop: 03/07/23 08:59 Last Admin: 02/10/23 08:29 Dose: Not Given Promethazine HCl 6.25 mg/ (Sodium Chloride) 50.25 mls @ 201 mls/hr IV Q6H PRN PRN Reason: Nausea And Vomiting Stop: 03/07/23 04:22 Losartan Potassium (Losartan Potassium 50 Mg Tab) 50 mg PO BID [facility] Stop: 03/09/23 08:59 Last Admin: 02/10/23 20:57 Dose: 50 mg Simvastatin (Simvastatin 10 Mg Tab) 10 mg PO PM [facility] Stop: 03/10/23 20:59 Last Admin: 02/10/23 20:57 Dose: 10 mg Urea (Urea (Urea-Na) 15 Gm Pack) 15 gm PO BID [facility] Stop: 03/12/23 10:14 Last Admin: 02/10/23 20:58 Dose: 15 gm
[2023-02-11] MEDS: LOSARTAN POTASSIUM 50 MG TAB PO SCH (08:02)
[2023-02-11] MEDS: carvediloL 3.125 MG TAB PO SCH (08:02)
[2023-02-11] MEDS: amLODIPine BESYLATE 5 MG TAB PO SCH (08:03)
[2023-02-11] MEDS: UREA (UREA-NA) 15 GM PACK PO SCH (08:03)
[2023-02-11] MEDS: ENOXAPARIN INJ 40 MG/0.4 ML SYR SQ SCH (08:03)
--- NOTE | 2023-02-11 10:31 | Nephrology Consultation ---
Date of Consultation February 11, 2023 Assessment & Plan (1) Hyponatremia: New onset hyponatremia after addition of spironolactone. So would have to assume this is the culprit. We will do urine osmolarity but the accuracy is limited as the last dose of spironolactone he had was yesterday morning. He is desperate to get discharged from the hospital. I will ask my clinic nurse to put an order for BMP to be done on . [facility] will do [facility] at [facility]. Advised to limit fluid intake to less than 50 ounces per day. Continue high- protein diet. I have specifically advised him not to increase salt intake as hyponatremia is not necessarily a lack of salt problem. (2) Hypertensive urgency: Blood pressure although better is still high. Continue amlodipine and losartan. Given his tendency of hyponatremia I would not use a thiazide diuretic nor Aldactone. If he really needs a diuretic can use a low-dose loop diuretic as this is very unlikely to cause hyponatremia. consider alternate blood pressure medicine for further control. For now we will increase the dose of carvedilol to 6.25 twice daily and continue amlodipine 10 and losartan 50 twice daily. History of Present Illness Reason for Consultation: Hyponatremia Attending Physician: Rony Rivas MD History of Present Illness 77-year-old male who has been here in the hospital for the last few days. He was admitted on February 05 for hypertensive urgency. Prior to that she was not taking any medication and did not really have any medical care since being admitted multiple medications has been added by cardiology . and has been having progressive hyponatremia for which I have been consulted. Sodium today is 128. Few days ago it was lower end of normal at 135. He was started on spironolactone by cardiology after which sodium started dropping. He is very eager to get discharged. However he currently does not have a home to live as he is in the middle of the process of moving to [place]. He also does not really have any medical care at this point. He does not have any acute complaints at this time. Denies nausea vomiting chest pain shortness of breath orthopnea PND. His solid food intake/protein intake seems normal. His daily fluid intake by interview is about 50 to 60 ounces per day. Review of systems----currently he feels completely normal. Total of 12 systems reviewed and negative. Past medical history----none Past surgical history--- none Allergies Allergy/AdvReac Type Severity Reaction Status Date / Time No Known Allergies Allergy Verified 02/05/23 00:34 Home Medications Medication Instructions Recorded Confirmed Type acetylcysteine 600 mg capsule (NAC) 0 mg PO DAILY 02/05/23 02/05/23 History ascorbic acid (vitamin C) 500 mg 0 mg PO DAILY 02/05/23 02/05/23 History tablet (Vitamin C) cholecalciferol (vitamin D3) 25 0 mcg PO DAILY 02/05/23 02/05/23 History mcg (1,000 unit) capsule (Vitamin D3) cyanocobalamin (vitamin B-12) 0 mcg PO DAILY 02/05/23 02/05/23 History 1,000 mcg tablet (Vitamin B-12) multivitamin 1 tab PO DAILY 02/05/23 02/05/23 History zinc gluconate 100 mg tablet 0 mg PO DAILY 02/05/23 02/05/23 History Patient History Social History Smoking Status: Never smoker Hx Alcohol Use: No Hx Substance Use: No Preferred Language: Thai Communication Ability: Effective [employer] Required: No Beliefs That Will Affect Care: None Current Living Situation: Alone Feels Safe at Home: Yes Safety Concerns: Feels Safe At This Time Assistive Devices: None Physical Exam Physical Exam: Awake alert and oriented. No distress. Normal speech Neck: Supple and no JVD Respiratory: Bilateral clear to auscultation Cardiovascular: Regular rate and rhythm no murmur heard Gastrointestinal (Abdomen): Abdomen is soft and nontender Skin: No rash noted Results & Data Vital Signs (Past 12 Hours) Vital Signs Temp Pulse Pulse Resp BP BP Pulse Ox 02/11/23 07:38 36.5 C 88 20 173/78 H 95 02/11/23 07:26 55 L 02/11/23 03:59 36.4 C L 54 L 18 163/84 H 96 02/10/23 23:00 60 02/10/23 22:37 36.4 C L 59 L 18 132/87 97 O2 Del Method 02/11/23 07:38 Room Air 02/11/23 07:26 02/11/23 03:59 Room Air 02/10/23 23:00 02/10/23 22:37 Room Air
[2023-02-11] MEDS ORDERED: carvediloL 6.25 MG TAB PO SCH (10:45)
--- NOTE | 2023-02-11 11:44 | Discharge Summary ---
Date of Service February 11, 2023 Admission HPI Per Admitting Provider History obtained from patient and records. No significant medical history. Patient is a resident of [place] who has not had a primary care doctor for years. Patient only takes [id number] supplements. He is currently in town to look at properties because he wants to reestablish residence in [place]. Patient resided with in [place] for more than 30 years before she from cancer about 2 years ago. Patient currently lives with his daughter in [place]. Patient was staying in [place], [place] at his sister's home the past week before driving to [facility] yesterday. He had a very busy day yesterday running errands and looking at properties. He remembers being tired. Patient was sitting at a table at a friend's home last night. He had his head down because he was tired. Patient denies loss of consciousness or syncope. His friends thought he was unresponsive. No witnessed seizures, incontinence. EMS called to friend's home. Initial SBP 60s, heart rate 50s to 60s, O2 sats 82 on room air. BSG 160s. Patient initially not responsive to sternal rub as per EMS report. Patient later woke up after IV fluids. Patient denies headache, chest pain, SOB. Admits to burping symptoms from a bad turkey sandwich. No actual abdominal pain. SBP 200s upon arrival at the ER. IV hydralazine administered at the ER. Medical History as above Surgical History : Tonsillectomy Family History : Alcoholism Personal/Social history : Non-smoker, occasional EtOH intake, retired businessman Admission Exam Per Admitting Provider GENERAL: Comfortable, pleasant, no respiratory distress SKIN: Normal color, warm HEENT: [place] palpebral conjunctivae, no ptosis, dry buccal mucosa NECK : Supple, no tenderness CHEST : CTA, no tenderness HEART : RRR, no obvious murmurs ABDOMEN: no distention, nontender EXTREMITIES : No LE swelling/tenderness, no other conspicuous deformities noted NEUROLOGIC : Coherent, no facial asymmetry, no other gross focality Principal Diagnosis Hypertensive urgency. Hyponatremia. Discharge Exam GENERAL: Comfortable, pleasant, no respiratory distress SKIN: Normal color, warm HEENT: NC/AT, EOMI, PERRL NECK : Supple CHEST : CTA, no tenderness HEART : RRR, no obvious murmurs ABDOMEN: no distention, nontender, + bowel sounds EXTREMITIES : No LE swelling/tenderness, moves extremities NEUROLOGIC : Coherent, no facial asymmetry, speech fluent, moves extremities Discharge Data Allergies Allergy/AdvReac Type Severity Reaction Status Date / Time No Known Allergies Allergy Verified 02/05/23 00:34 Consultations 02/05/23 01:18 ED Decision to Admit Stat 02/05/23 08:24 Consult Cardiology Routine 02/11/23 07:18 Consult Nephrology Routine Ordered Studies 02/05/23 01:59 CT angio chest PE protocol Stat FINDINGS: Limitations: There is respiratory artifact, which degrades image quality on multiple image slices. Pulmonary arteries: Accounting for limitations with respiratory artifact, there is no definite evidence for pulmonary embolism. Aorta: No acute findings. No thoracic aortic aneurysm. Lungs: Minimal dependent subsegmental changes noted posteriorly in both lungs. No focal airspace consolidation. Pleural space: Unremarkable. No significant effusion. No pneumothorax. Heart: The cardiac chambers are mildly enlarged. Coronary artery calcification is of uncertain clinical significance in patients of this age group. No pericardial effusion. Bones/joints: No acute fracture. No dislocation. Soft tissues: Unremarkable. Lymph nodes: Unremarkable. No enlarged lymph nodes. IMPRESSION: 1. Accounting for limitations with respiratory artifact, there is no definite evidence for pulmonary embolism. 2. Minimal dependent subsegmental atelectatic changes noted posteriorly in both lungs. No focal airspace consolidation. No pleural effusion or pneumothorax. Hospital Course (1) Hypertensive urgency: Transient unresponsiveness (which patient denies)/weakness Possibly from above Rule out arrhythmia, valvular pathology Medical telemetry Echo obtained and cardiology consulted Echo - mild concentric LVH. LV wall motion is normal. LVEF 60 to 65%. There is trace mitral regurg. Cardiology started pt on losartan and BP still elevated Also started amlodipine 5 mg daily and spironolactone 12.5 mg daily - and pt still elevated 02/07/23 -Consider discharge on losartan 100 mg daily, amlodipine 10 mg daily, spironolactone 12.5 mg daily. -Hesitant to increase spironolactone to 25 mg or add a thiazide diuretic because of mild hyponatremia. -He is not a good candidate for a beta audrey, verapamil, or clonidine as his baseline HR is in the 60s. -Will need follow up as outpt in 1-2 weeks with follow up basic metabolic panel. -Pt states he will follow up in [place]. Given findings of coronary artery calcifications on CT and LDL 149 - started atorvastatin 10 mg daily 02/08 -last evening systolic blood pressure still elevated to 200s, and required IV hydralazine, continue to monitor on the current regimen, will discuss further with cardiology as needed 02/09 -last evening systolic blood pressure again elevated to 180s. Discussed with cardiology, will add small dose Coreg 3.125 twice daily. 02/10 blood pressure better controlled after starting Coreg however patient w/hyponatremia sodium 129. Discussed with nephrology, stopped Aldactone, started fluid restriction and urea. We will recheck BMP tomorrow. 02/11 patient still hyponatremic, however he also received Aldactone in the morning yesterday. Discussed with nephrology in detail. We will discharge on amlodipine 10 mg, losartan 50 mg twice a day, and Coreg 6.25 mg twice a day. Patient should adhere to fluid restriction. Sodium level will be checked on at [facility], with Dr. Maynard to follow-up on his blood work. Patient should continue with high-protein diet. Subclinical hypothyroidism - Recheck TSH next month outpatient Hyperglycemia rule out DM ->Hemoglobin A1c 5.8% Total Time Total Time Spent Total Time Spent (In Minutes): 40 Discharge Plan Discharge Items Patient Disposition: Home - Self-Care Reason For Visit: TRANSIENT HYPOXEMIA Discharge Diagnosis: Hypertensive urgency. Hyponatremia. Activity: Per Instructions section Non-emergency contact: Primary Care Provider, Forensic Artist and Clinical Reimbursement Specialist Call non-emergency contact if: you have any medication questions and your symptoms worsen Follow-up/Referrals: PCP,NO [Primary Care Provider] - Diet: Heart Healthy Fluids: 1200ml (5 cups) Addtl Attending Provider Instructions: You were started on new medications for blood pressure amlodipine 10 mg daily, losartan 50 mg twice a day, and carvedilol 6.25 mg twice a day. You are also started on cholesterol medication, simvastatin 10 mg daily. If you can, I recommend that you check your blood pressure at home and keep a record of your numbers. Discuss your numbers with your primary care doctor and/your crown perforator operator. It is recommended that you choose primary care doctor to follow-up with. You can contact us- Brandon reyes - Donell Gunter, if you would like us to assist you to set up appointment. Contact information for Donell was provided to you. You will need to check your sodium level on , please get blood work done at [facility] lab. Results will be sent to grounds person, Dr. Maynard for review. Pending Studies at Discharge: Yes Studies:: sodium studies Stand-Alone Forms: My [facility], Smoking Cessation Medications and DC Order Prescriptions: New amlodipine [Norvasc] 5 mg Tablet 10 mg PO QAM Qty: 30 0RF carvedilol 6.25 mg Tablet 6.25 mg PO BID Qty: 60 0RF losartan 50 mg Tablet 50 mg PO BID Qty: 60 0RF simvastatin 10 mg Tablet 10 mg PO PM Qty: 30 0RF Continued multivitamin Tablet 1 tab PO DAILY zinc gluconate [Zinc Natural] 100 mg Tablet 0 mg PO DAILY Rx Instructions: PT UNSURE OF STRENGTH cyanocobalamin (vitamin B-12) [Vitamin B-12] 1,000 mcg Tablet 0 mcg PO DAILY Rx Instructions: PT UNSURE OF STRENGTH ascorbic acid (vitamin C) [Vitamin C] 500 mg Tablet 0 mg PO DAILY Rx Instructions: PT UNSURE OF STRENGTH cholecalciferol (vitamin D3) [Vitamin D3] 25 mcg (1,000 unit) Capsule 0 mcg PO DAILY Rx Instructions: PT UNSURE OF STRENGTH acetylcysteine [NAC] 600 mg Capsule 0 mg PO DAILY Rx Instructions: PT UNSURE OF STRENGTH Discharge Orders: Discharge Order (Routine); Ordered 02/11/23 Ordered By: Rony Rivas Admission Data Admit Date/Time: 02/06/23 18:19 Attending Provider: Rony Rivas Admit Provider: Montez Pretty Primary Care Provider: PCP,NO Other Providers: Montez Pretty ; Farooq Rosas Roshan
== END 2023-02-11 14:02 | disposition home or self-care (01) | DRG 305 ==
LOC: 2W 23:52 → ED 23:52 → 2W 02-05 03:56